=== PATIENT | male | born 1955 | race Caucasian/White ===

== ENCOUNTER 2018-04-01 16:45 | Emergency (ER) | payer MEDICAID ==
[2018-04-01 17:05] VITALS: BP 147/91
--- NOTE | 2018-04-01 17:34 | EDM.PDOC ---
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 He was doing some wheezing and he did use his inhaler several times. He stated the room was very warm and the air did not seem vivian be moving. He did not have severe chest pain and he did not feel like his heart was real rapid. Onset: Today, Sudden Duration: Hour(s): Location: Reports: Chest Associated Symptoms: Reports: Cough, Shortness of Breath Right Shoulder Pain Score (Numeric/FACES): 2 - Related Data Allergies Allergy/AdvReac Type Severity Reaction Status Date / Time No Known Allergies Allergy Verified 04/01/18 16:58 Home Meds: Home Meds Meloxicam [Mobic] 15 mg PO DAILY 01/04/15 [History] buPROPion [buPROPion XL] 150 mg PO BID 01/04/15 [History] Albuterol Sulfate 1 - 2 puff INH Q4H PRN 12/15/17 [History] Budesonide/Formoterol [Symbicort 160-4.5 MCG] 2 puff INH DAILY 12/15/17 [History ] Finasteride [Proscar] 5 mg PO DAILY 12/15/17 [History] Omeprazole Magnesium [Prilosec Otc] 40 mg PO DAILY 12/15/17 [History] Tamsulosin [Flomax] 0.4 mg PO DAILY 12/15/17 [History] Vardenafil HCl [Levitra] 20 mg PO DAILY PRN 12/15/17 [History] Past Medical History HEENT History: Reports: Impaired Vision Cardiovascular History: Reports: Hypertension, Other (See Below) Other Cardiovascular History: physician from clinic thought that patient may have suffered a cardiac event at some point and sent up appt. with binder layer in [place] which patient did not keep Respiratory History: Reports: COPD, Sleep Apnea, SOB Musculoskeletal History: Reports: Back Pain, Chronic Psychiatric History: Reports: Depression - Infectious Disease History Infectious Disease History: Reports: Chicken Pox, Measles, Mumps - Past Surgical History Head Surgeries/Procedures: Reports: None HEENT Surgical History: Reports: Adenoidectomy, Tonsillectomy Other HEENT Surgeries/Procedures: adnoids Respiratory Surgical History: Reports: None Musculoskeletal Surgical History: Reports: Other (See Below) Other Musculoskeletal Surgeries/Procedures:: ankle Dermatological Surgical History: Reports: None Social & Family History - Tobacco Use Smoking Status *Q: Former Smoker Used Tobacco, but Quit: Yes Month/Year Tobacco Last Used: 1991 Second Hand Smoke Exposure: No - Caffeine Use Caffeine Use: Reports: Coffee - Recreational Drug Use Recreational Drug Use: Yes Drug Use in Last 12 Months: Yes Recreational Drug Type: Reports: Marijuana/Hashish Recreational Drug Use Frequency: Daily ED ROS GENERAL - Review of Systems Review Of Systems: See Below Constitutional: Reports: Diaphoresis HEENT: Reports: No Symptoms Respiratory: Reports: Shortness of Breath, Wheezing Endocrine: Reports: No Symptoms GI/Abdominal: Reports: No Symptoms : Reports: No Symptoms Musculoskeletal: Reports: No Symptoms ED EXAM, GENERAL - Physical Exam Exam: See Below Free Text/Narrative:: pt arrived with sob and he felt he was wheezing. He felt ok when he went to work today. 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 Exam Limited By: No Limitations General Appearance: Alert, Moderate Distress Ears: Normal TMs Nose: Normal Inspection Throat/Mouth: Normal Inspection Head: Atraumatic Neck: Normal Inspection Respiratory/Chest: No Respiratory Distress Cardiovascular: Regular Rate, Rhythm, Tachycardia GI/Abdominal: Soft, Non-Tender (Male) Exam: Deferred Rectal (Males) Exam: Deferred Back Exam: Normal Inspection Extremities: Normal Inspection Neurological: Alert, Oriented, Normal Cognition Psychiatric: Normal Affect Course - Vital Signs Last Recorded V/S: Last Vital Signs Temp 37.5 C 04/01/18 17:12 Pulse 97 04/01/18 17:12 Resp 20 04/01/18 17:12 BP 147/91 H 04/01/18 17:12 Pulse Ox 97 04/01/18 17:12 - Orders/Labs/Meds Labs: Laboratory Tests 04/01/18 04/01/18 04/01/18 Range/Units 17:08 17:08 17:08 WBC 6.8 (4.5-11.0) K/uL RBC 5.30 (4.30-5.90) M/uL Hgb 14.9 (12.0-15.0) g/dL Hct 44.6 (40.0-54.0) % MCV 84 (80-98) fL MCH 28 (27-31) pg MCHC 33 (32-36) % Plt Count 280 (150-400) K/uL Neut % (Auto) 71 H (36-66) % Lymph % (Auto) 16 L (24-44) % Denton % (Auto) 10 H (2-6) % Eos % (Auto) 2 (2-4) % Baso % (Auto) 0 (0-1) % Puncture Site ABG pH (7.350-7.450) ABG pCO2 (35.0-42.0) mmHg ABG pO2 (75.0-100.0) mmHg ABG HCO3 (22.0-26.0) mmol/L ABG Total CO2 (23.0-27.0) mmol/L ABG O2 Saturation (95.0-98.0) % ABG O2 Content (15.0-23.0) %vol ABG Base Excess mm/L ABG Hemoglobin (13.5-18.0) g/dL ABG Oxyhemoglobin % ABG Carboxyhemoglobin (0.0-1.6) % ABG Methemoglobin % Aquiles Test O2 Delivery Device Sodium 140 (140-148) mmol/L Potassium 4.0 (3.6-5.2) mmol/L Chloride 105 (100-108) mmol/L Carbon Dioxide 25 (21-32) mmol/L Anion Gap 10.3 (5.0-14.0) mmol/L BUN 22 H (7-18) mg/dL Creatinine 1.3 (0.8-1.3) mg/dL Est Cr Clr Drug Dosing 65.50 mL/min Estimated GFR (MDRD) 56 L (>60) Glucose 94 (74-106) mg/dL Calcium 9.2 (8.5-10.1) mg/dL Total Bilirubin 0.4 (0.2-1.0) mg/dL AST 22 (15-37) U/L ALT 34 (12-78) U/L Alkaline Phosphatase 99 (46-116) U/L Troponin I < 0.017 (0.000-0.056) ng/mL Total Protein 7.4 (6.4-8.2) g/dL Albumin 3.9 (3.4-5.0) g/dL Globulin 3.5 (2.3-3.5) g/dL Albumin/Globulin Ratio 1.1 L (1.2-2.2) 04/01/18 Range/Units 17:31 WBC (4.5-11.0) K/uL RBC (4.30-5.90) M/uL Hgb (12.0-15.0) g/dL Hct (40.0-54.0) % MCV (80-98) fL MCH (27-31) pg MCHC (32-36) % Plt Count (150-400) K/uL Neut % (Auto) (36-66) % Lymph % (Auto) (24-44) % Denton % (Auto) (2-6) % Eos % (Auto) (2-4) % Baso % (Auto) (0-1) % Puncture Site Rt.radial ABG pH 7.432 (7.350-7.450) ABG pCO2 30.7 L (35.0-42.0) mmHg ABG pO2 88.4 (75.0-100.0) mmHg ABG HCO3 20.1 L (22.0-26.0) mmol/L ABG Total CO2 17.4 L (23.0-27.0) mmol/L ABG O2 Saturation 96.6 (95.0-98.0) % ABG O2 Content 19.6 (15.0-23.0) %vol ABG Base Excess -2.6 mm/L ABG Hemoglobin 14.6 (13.5-18.0) g/dL ABG Oxyhemoglobin 95.0 % ABG Carboxyhemoglobin 0.5 (0.0-1.6) % ABG Methemoglobin 1.2 % Aquiles Test Passed O2 Delivery Device Room air Sodium (140-148) mmol/L Potassium (3.6-5.2) mmol/L Chloride (100-108) mmol/L Carbon Dioxide (21-32) mmol/L Anion Gap (5.0-14.0) mmol/L BUN (7-18) mg/dL Creatinine (0.8-1.3) mg/dL Est Cr Clr Drug Dosing mL/min Estimated GFR (MDRD) (>60) Glucose (74-106) mg/dL Calcium (8.5-10.1) mg/dL Total Bilirubin (0.2-1.0) mg/dL AST (15-37) U/L ALT (12-78) U/L Alkaline Phosphatase (46-116) U/L Troponin I (0.000-0.056) ng/mL Total Protein (6.4-8.2) g/dL Albumin (3.4-5.0) g/dL Globulin (2.3-3.5) g/dL Albumin/Globulin Ratio (1.2-2.2) Meds: Medications Discontinued Medications Generic Name Dose Route Start Last Admin Trade Name Freq PRN Reason Stop Dose Admin Albuterol 2.5 mg 04/01/18 17:40 Proventil Neb Soln NEB 04/01/18 17:41 ONETIME ONE - Re-Assessments/Exams Free Text/Narrative Re-Assessment/Exam: 04/01/18 17:52 pt had blood gases which shows a low co2 so I assume he was doing yvon hyperventilatin. His wbc is normal. his chest xray did not reveal a infiltrate. 04/01/18 17:54 trop is normal. his ekg did not show acute changes. Departure - Departure Time of Disposition: 18:10 Disposition: Home, Self-Care 01 Condition: Fair Clinical Impression: Hyperventilation, SOB (shortness of breath) - Discharge Information Instructions: Shortness of Breath, Adult Referrals: PCP,None [Primary Care Provider] - Forms: ED Department Discharge Care Plan Goals: cont to use inhaler, when pt is feeling sob encourage deep breathing. rtc if problems.
[2018-04-01] MEDS ORDERED: Albuterol 0.083% 2.5 MG/3 ML Neb Soln NEB ONE (17:40)
--- NOTE | 2018-04-04 08:36 | CR ---
CHEST: Portable CLINICAL HISTORY:SOB COMPARISON:None FINDINGS: The heart size, pulmonary vascular and hilar structures are normal. No infiltrate effusion or pneumothorax is seen. IMPRESSION: No acute cardiopulmonary process.
== END 2018-04-01 18:12 | disposition home or self-care (01) ==
LOC: JP.ED 16:45
DX: R06.4 Hyperventilation (principal); R06.02 Shortness of breath; I10 Essential (primary) hypertension; J44.9 Chronic obstructive pulmonary disease, unspecified; G47.30 Sleep apnea, unspecified; G89.29 Other chronic pain; M54.9 Dorsalgia, unspecified; F32.9 Major depressive disorder, single episode, unspecified; Z87.891 Personal history of nicotine dependence; Z79.1 Long term (current) use of non-steroidal anti-inflammatories (NSAID); Z79.899 Other long term (current) drug therapy; Z79.51 Long term (current) use of inhaled steroids
CPT/HCPCS: 36415; 36600; 71045; 71045-26; 80053; 82803; 84484; 85025; 93005; 93010; 99285-25

== ENCOUNTER 2018-09-04 05:54 | Emergency (ER) | payer MEDICAID ==
[2018-09-04 06:33] VITALS: BP 170/93
--- NOTE | 2018-09-04 06:59 | EDM.PDOC ---
ED HPI GENERAL MEDICAL PROBLEM - General Chief Complaint: Gastrointestinal Problem Stated Complaint: LOWER STOMACH PAIN Time Seen by Provider: 09/04/18 06:25 Source of Information: Reports: Patient History Limitations: Reports: No Limitations - History of Present Illness INITIAL COMMENTS - FREE TEXT/NARRATIVE: 63 yo with hx of BPH presents with concerns of lower abdominal pain. Pain has been going on for intermittently for years. Worse for the last couple months and especially the last few days. He reports the pain is in his lower abdomen. It in crampy. Intermittent. Nothing seems to provoke or palliate. Associated with loose BMs. Not tarry or bloody. Was on azithromycin last month but no other recent antibiotics. No travel. No fevers. Does have history of BPH. Reports urinary frequency and perhaps some mild dysuria. He reports a "real bad" diet consistent of butter and lots of dairy and meat with few vegetables. Treatments DENSITY CONTROL PUNCHER: Reports: Other (see below) Other Treatments DENSITY CONTROL PUNCHER: none Lower Abdomen Pain Score (Numeric/FACES): 9 - Related Data Allergies Allergy/AdvReac Type Severity Reaction Status Date / Time No Known Allergies Allergy Verified 09/04/18 06:10 Home Meds: Home Meds Meloxicam [Mobic] 15 mg PO DAILY 01/04/15 [History] buPROPion [buPROPion XL] 150 mg PO BID 01/04/15 [History] Albuterol Sulfate 1 - 2 puff INH Q4H PRN 12/15/17 [History] Budesonide/Formoterol [Symbicort 160-4.5 MCG] 2 puff INH DAILY 12/15/17 [History ] Finasteride [Proscar] 5 mg PO DAILY 12/15/17 [History] Omeprazole Magnesium [Prilosec Otc] 40 mg PO DAILY 12/15/17 [History] Tamsulosin [Flomax] 0.4 mg PO DAILY 12/15/17 [History] Sertraline HCl 50 mg PO BEDTIME 09/04/18 [History] Past Medical History HEENT History: Reports: Impaired Vision Cardiovascular History: Reports: Hypertension, Other (See Below) Other Cardiovascular History: physician from clinic thought that patient may have suffered a cardiac event at some point and sent up appt. with [facility] in [place] which patient did not keep Respiratory History: Reports: COPD, Sleep Apnea, SOB Genitourinary History: Reports: Prostate Disorder Musculoskeletal History: Reports: Back Pain, Chronic Psychiatric History: Reports: Depression - Infectious Disease History Infectious Disease History: Reports: Chicken Pox - Past Surgical History Head Surgeries/Procedures: Reports: None HEENT Surgical History: Reports: Adenoidectomy, Tonsillectomy Other HEENT Surgeries/Procedures: adnoids Musculoskeletal Surgical History: Reports: Other (See Below) Other Musculoskeletal Surgeries/Procedures:: ankle Dermatological Surgical History: Reports: None Social & Family History - Tobacco Use Smoking Status *Q: Unknown Ever Smoked - Caffeine Use Caffeine Use: Reports: Coffee - Recreational Drug Use Recreational Drug Use: No ED ROS GENERAL - Review of Systems Review Of Systems: See Below Constitutional: Reports: No Symptoms. Denies: Fever, Chills HEENT: Reports: No Symptoms Respiratory: Reports: No Symptoms. Denies: Cough Cardiovascular: Reports: No Symptoms. Denies: Chest Pain Endocrine: Reports: No Symptoms GI/Abdominal: Reports: Abdominal Pain, Diarrhea, Nausea : Reports: No Symptoms Musculoskeletal: Reports: No Symptoms Skin: Reports: No Symptoms Neurological: Reports: No Symptoms Psychiatric: Reports: No Symptoms Hematologic/Lymphatic: Reports: No Symptoms Immunologic: Reports: No Symptoms ED EXAM, GI/ABD - Physical Exam Exam: See Below Exam Limited By: No Limitations General Appearance: Alert, No Apparent Distress Nose: Normal Inspection Throat/Mouth: Normal Inspection Head: Atraumatic, Normocephalic Neck: Normal Inspection Respiratory/Chest: No Respiratory Distress Cardiovascular: Regular Rate, Rhythm GI/Abdominal Exam: Soft, No Distention, Tender (mild lower abdominal tenderness) Back Exam: Normal Inspection Extremities: Normal Inspection Neurological: Alert, Oriented Psychiatric: Normal Affect, Normal Mood Skin Exam: Warm, Dry Course - Vital Signs Last Recorded V/S: Last Vital Signs Temp 36.1 C 09/04/18 06:03 Pulse 90 09/04/18 06:32 Resp 14 09/04/18 06:32 BP 170/93 H 09/04/18 06:32 Pulse Ox 97 09/04/18 06:32 - Orders/Labs/Meds Labs: Laboratory Tests 09/04/18 Range/Units 07:12 Urine Color Yellow Urine Appearance Clear Urine pH 5.0 (4.5-8.0) Ur Specific Lester 1.005 L (1.008-1.030) Urine Protein Negative (NEGATIVE) mg/dL Urine Glucose (UA) Normal (NEGATIVE) mg/dL Urine Ketones Negative (NEGATIVE) mg/dL Urine Occult Blood Negative (NEGATIVE) Urine Nitrite Negative (NEGAITVE) Urine Bilirubin Negative (NEGATIVE) Urine Urobilinogen Normal (NORMAL) mg/dL Ur Leukocyte Esterase Negative (NEGATIVE) Urine RBC Not seen (0-5) Urine WBC Not seen (0-5) Ur Epithelial Cells Not seen Amorphous Sediment Rare Urine Bacteria Not seen Urine Mucus Not seen - Re-Assessments/Exams Free Text/Narrative Re-Assessment/Exam: 63 yo with hx of BPH presents with concerns of lower abdominal pain. Hx of this for years, particularly over last several month, worsened this last week. On exam here noted to have mild lower abdominal tenderness. Normal vitals. Extensive work-up through PCP including labs and CT scan earlier this week. Hx of BPH. Post void residual measure here measured at 350 cc. At this point given the chronicity of symptoms and work up earlier this week repeat labs/imaging are likely to be of little yield. We will recheck a UA given reported change in urinary symptoms and risk for UTI given BPH. Otherwise have discussed a trial of dietary modification to bland/high fiber diet and minimizing excessive meat/dairy. Follow-up referral with primary MD later this week placed. 09/04/18 07:06 09/04/18 07:14 Departure - Departure Time of Disposition: 07:35 Disposition: Home, Self-Care 01 Condition: Good Clinical Impression: Lower abdominal pain - Discharge Information *PRESCRIPTION DRUG MONITORING PROGRAM REVIEWED*: No *COPY OF PRESCRIPTION DRUG MONITORING REPORT IN PATIENT LINA: No Referrals: Rancho Ogden NP [Primary Care Provider] - Forms: ED Department Discharge Additional Instructions: We did not find a cause for your symptoms on your work-up in the ER today. We recommend changing your diet as discussed: do a trial of increased vegetables like broccoli, toast, mashed potatoes, and other plain food with minimal dairy and meat. Trouble with your diet would not necessarily show up on labs or imaging so the only way to see if this helps is trial the change. Follow up with your primary doctor this week See a doctor soon for significant change in your symptoms including fevers and changing characteristics of the pain.
== END 2018-09-04 07:50 | disposition home or self-care (01) ==
LOC: JP.ED 05:54
DX: R10.30 Lower abdominal pain, unspecified (principal); I10 Essential (primary) hypertension; J44.9 Chronic obstructive pulmonary disease, unspecified; Z79.899 Other long term (current) drug therapy
CPT/HCPCS: 81001; 99284

== ENCOUNTER 2019-01-15 03:19 | Emergency (ER) | payer MEDICAID ==
[2019-01-15] MEDS: Ondansetron 4 MG/2 ML SDV IVPUSH ONE (03:51)
[2019-01-15] MEDS: Lactated Ringers 1,000 ML IV SCH (03:51)
[2019-01-15] MEDS: fentaNYL 100 MCG/2 ML SDV IVPUSH ONE ×2 (03:51→06:40)
[2019-01-15] MEDS: Levofloxacin/Dextrose 5%-Water 750 MG in Premix Bag 1 BAG IV SCH (04:04)
--- NOTE | 2019-01-15 04:07 | EDM.PDOC ---
ED HPI GENERAL MEDICAL PROBLEM - General Chief Complaint: Fever Stated Complaint: RIGHT LEG PAIN Time Seen by Provider: 01/15/19 03:30 Source of Information: Reports: Patient, Old Records, RN Notes Reviewed History Limitations: Reports: No Limitations - History of Present Illness INITIAL COMMENTS - FREE TEXT/NARRATIVE: 63-year-old gentleman presents to the emergency department today complaint of abdominal pain difficulty with urination and fever, he states his symptoms have been going on for the last 2 or 3 days was evaluated in the clinic yesterday lab work included abdominal ultrasound CBC, BMP no notes available lab work is unremarkable. He also complains of nausea no chest pain - Related Data Allergies Allergy/AdvReac Type Severity Reaction Status Date / Time No Known Allergies Allergy Verified 09/04/18 06:10 Home Meds: Home Meds Meloxicam [Mobic] 15 mg PO DAILY 01/04/15 [History] buPROPion [buPROPion XL] 150 mg PO BID 01/04/15 [History] Albuterol Sulfate 1 - 2 puff INH Q4H PRN 12/15/17 [History] Budesonide/Formoterol [Symbicort 160-4.5 MCG] 2 puff INH DAILY 12/15/17 [History ] Finasteride [Proscar] 5 mg PO DAILY 12/15/17 [History] Omeprazole Magnesium [Prilosec Otc] 40 mg PO DAILY 12/15/17 [History] Tamsulosin [Flomax] 0.4 mg PO DAILY 12/15/17 [History] Sertraline HCl 50 mg PO BEDTIME 09/04/18 [History] Past Medical History HEENT History: Reports: Impaired Vision Cardiovascular History: Reports: Hypertension, Other (See Below) Other Cardiovascular History: physician from clinic thought that patient may have suffered a cardiac event at some point and sent up appt. with dental scheduler in [place] which patient did not keep Respiratory History: Reports: COPD, Sleep Apnea, SOB Genitourinary History: Reports: Prostate Disorder Musculoskeletal History: Reports: Back Pain, Chronic Psychiatric History: Reports: Depression - Infectious Disease History Infectious Disease History: Reports: Chicken Pox - Past Surgical History Head Surgeries/Procedures: Reports: None HEENT Surgical History: Reports: Adenoidectomy, Tonsillectomy Other HEENT Surgeries/Procedures: adnoids Musculoskeletal Surgical History: Reports: Other (See Below) Other Musculoskeletal Surgeries/Procedures:: ankle Dermatological Surgical History: Reports: None Social & Family History - Tobacco Use Smoking Status *Q: Unknown Ever Smoked - Caffeine Use Caffeine Use: Reports: Coffee ED ROS GENERAL - Review of Systems Review Of Systems: See Below Constitutional: Reports: Fever, Chills HEENT: Reports: No Symptoms Respiratory: Reports: Shortness of Breath Cardiovascular: Reports: Dyspnea on Exertion GI/Abdominal: Reports: Abdominal Pain, Nausea. Denies: Vomiting : Reports: Frequency, Urinary Retention Musculoskeletal: Reports: No Symptoms Skin: Reports: No Symptoms Neurological: Reports: No Symptoms ED EXAM, SEPSIS - Physical Exam Exam: See Below Text/Narrative:: General: Male, ill-appearing with chills and riders, alert and oriented x3 HEENT : head is atraumatic normocephalic, eyes pupils equal round reactive to light, sclera clear no conjunctivitis appreciated. Ears tympanic membranes clear and rodgers landmarks and light reflex are present bilaterally canals are clear. Nose no septal deviation, nares are clear, no blood present. Mouth mucosa is dry and red no erythema or exudate noted in soft palate, tongue is midline uvula is midline, dentition is intact. Neck: Supple no thyromegaly no tracheal deviation. Nodes: Cervical nodes subclavicular nodes nontender no palpable lymphadenopathy noted. Lungs: Breath sounds are distant but I do not appreciate any adventitious noises CV: Regular rate and rhythm S1 and S2 appreciated no murmurs rubs or gallops noted. Abdomen: Soft, generalized tenderness, no palpable masses or organomegaly appreciated, positive for distention no guarding bowel sounds are present, . Neuro: GCS 15, alert and oriented Skin: Warm and dry, intact Extremities: No lower extremity edema appreciated, pedal pulse is +2. Course - Vital Signs Last Recorded V/S: Last Vital Signs Temp 102.2 F H 01/15/19 05:00 Pulse 100 01/15/19 05:00 Resp 18 01/15/19 05:00 BP 130/60 01/15/19 05:00 Pulse Ox 98 01/15/19 05:00 - Orders/Labs/Meds Orders: Active Orders 24 hr Category Date Time Status Peripheral IV Care [RC] . DIRECTED Care 01/15/19 04:02 Active Vital Signs [RC] Q1H Care 01/15/19 03:37 Active CULTURE BLOOD [BC] Urgent Lab 01/15/19 03:30 Received CULTURE BLOOD [BC] Urgent Lab 01/15/19 03:55 Received CULTURE URINE [RM] Stat Lab 01/15/19 03:45 Received Lactated Ringers [Ringers, Lactated] 1,000 ml Med 01/15/19 03:45 Active IV ASDIRECTED Levofloxacin/Dextrose 5%-Water [Levaquin in D5W 750 MG/ Med 01/15/19 03:45 Active 150 ML] 750 mg Premix Bag 1 bag IV Q24H Sodium Chloride 0.9% [Saline Flush] Med 01/15/19 04:02 Active 10 ml FLUSH ASDIRECTED PRN Blood Culture x2 Reflex Set [OM.PC] Urgent Oth 01/15/19 03:37 Ordered Peripheral IV Insertion Adult [OM.PC] Urgent Oth 01/15/19 04:02 Ordered Medication Orders Lactated Ringer's (Ringers, Lactated) 1,000 mls @ 999 mls/hr IV ASDIRECTED LUCIO Last Admin: 01/15/19 03:51 Dose: 999 mls/hr Levofloxacin/Dextrose 750 mg/ (Premix) 150 mls @ 100 mls/hr IV Q24H LUCIO Last Admin: 01/15/19 04:04 Dose: 100 mls/hr Sodium Chloride (Saline Flush) 10 ml FLUSH ASDIRECTED PRN PRN Reason: Keep Vein Open Last Admin: 01/15/19 04:10 Dose: 10 ml Labs: Laboratory Tests 01/15/19 01/15/19 01/15/19 Range/Units 03:30 03:30 03:30 WBC 4.4 L (4.5-11.0) K/uL RBC 5.41 (4.30-5.90) M/uL Hgb 14.8 (12.0-15.0) g/dL Hct 43.8 (40.0-54.0) % MCV 81 (80-98) fL MCH 27 (27-31) pg MCHC 34 (32-36) % Plt Count 168 (150-400) K/uL Neut % (Auto) 89 H (36-66) % Lymph % (Auto) 6 L (24-44) % [place] % (Auto) 5 (2-6) % Eos % (Auto) 0 L (2-4) % Baso % (Auto) 1 (0-1) % Sodium 135 L (140-148) mmol/L Potassium 3.7 (3.6-5.2) mmol/L Chloride 98 L (100-108) mmol/L Carbon Dioxide 22 (21-32) mmol/L Anion Gap 18.7 H (5.0-14.0) mmol/L BUN 11 (7-18) mg/dL Creatinine 1.0 (0.8-1.3) mg/dL Est Cr Clr Drug Dosing 84.07 mL/min Estimated GFR (MDRD) > 60 (>60) Glucose 105 (74-106) mg/dL Lactic Acid 1.7 (0.4-2.0) mmol/L Calcium 8.7 (8.5-10.1) mg/dL Total Bilirubin 0.5 D (0.2-1.0) mg/dL AST 47 H D (15-37) U/L ALT 44 (12-78) U/L Alkaline Phosphatase 116 (46-116) U/L Lactate Dehydrogenase (85-227) U/L C-Reactive Protein 11.07 H (0.0-0.3) mg/dL Total Protein 6.9 (6.4-8.2) g/dL Albumin 3.2 L (3.4-5.0) g/dL Globulin 3.7 H (2.3-3.5) g/dL Albumin/Globulin Ratio 0.9 L (1.2-2.2) Procalcitonin ng/mL Urine Color Urine Appearance Urine pH (4.5-8.0) Ur Specific [place] (1.008-1.030) Urine Protein (NEGATIVE) mg/dL Urine Glucose (UA) (NEGATIVE) mg/dL Urine Ketones (NEGATIVE) mg/dL Urine Occult Blood (NEGATIVE) Urine Nitrite (NEGAITVE) Urine Bilirubin (NEGATIVE) Urine Urobilinogen (NORMAL) mg/dL Ur Leukocyte Esterase (NEGATIVE) Urine RBC (0-5) Urine WBC (0-5) Ur Epithelial Cells Amorphous Sediment Urine Bacteria Urine Mucus 01/15/19 01/15/19 01/15/19 Range/Units 03:30 03:35 03:45 WBC (4.5-11.0) K/uL RBC (4.30-5.90) M/uL Hgb (12.0-15.0) g/dL Hct (40.0-54.0) % MCV (80-98) fL MCH (27-31) pg MCHC (32-36) % Plt Count (150-400) K/uL Neut % (Auto) (36-66) % Lymph % (Auto) (24-44) % [place] % (Auto) (2-6) % Eos % (Auto) (2-4) % Baso % (Auto) (0-1) % Sodium (140-148) mmol/L Potassium (3.6-5.2) mmol/L Chloride (100-108) mmol/L Carbon Dioxide (21-32) mmol/L Anion Gap (5.0-14.0) mmol/L BUN (7-18) mg/dL Creatinine (0.8-1.3) mg/dL Est Cr Clr Drug Dosing mL/min Estimated GFR (MDRD) (>60) Glucose (74-106) mg/dL Lactic Acid (0.4-2.0) mmol/L Calcium (8.5-10.1) mg/dL Total Bilirubin (0.2-1.0) mg/dL AST (15-37) U/L ALT (12-78) U/L Alkaline Phosphatase (46-116) U/L Lactate Dehydrogenase 312 H (85-227) U/L C-Reactive Protein (0.0-0.3) mg/dL Total Protein (6.4-8.2) g/dL Albumin (3.4-5.0) g/dL Globulin (2.3-3.5) g/dL Albumin/Globulin Ratio (1.2-2.2) Procalcitonin 0.57 ng/mL Urine Color Yellow Urine Appearance Clear Urine pH 6.0 (4.5-8.0) Ur Specific [place] 1.010 (1.008-1.030) Urine Protein Trace (NEGATIVE) mg/dL Urine Glucose (UA) Normal (NEGATIVE) mg/dL Urine Ketones 50 H (NEGATIVE) mg/dL Urine Occult Blood Trace (NEGATIVE) Urine Nitrite Negative (NEGAITVE) Urine Bilirubin Negative (NEGATIVE) Urine Urobilinogen Normal (NORMAL) mg/dL Ur Leukocyte Esterase Negative (NEGATIVE) Urine RBC 0-5 (0-5) Urine WBC 0-5 (0-5) Ur Epithelial Cells Few Amorphous Sediment Not seen Urine Bacteria Few Urine Mucus Not seen Meds: Medications Generic Name Dose Route Start Last Admin Trade Name Freq PRN Reason Stop Dose Admin Lactated Ringer's 1,000 mls @ 999 mls/hr 01/15/19 03:45 01/15/19 03:51 Ringers, Lactated IV 999 mls/hr ASDIRECTED LUCIO Administration Levofloxacin/Dextrose 750 mg/ 150 mls @ 100 mls/hr 01/15/19 03:45 01/15/19 04 :04 Premix IV 100 mls/hr Q24H LUCIO Administration Sodium Chloride 10 ml 01/15/19 04:02 01/15/19 04:10 Saline Flush FLUSH 10 ml ASDIRECTED PRN Administration Keep Vein Open Discontinued Medications Generic Name Dose Route Start Last Admin Trade Name Freq PRN Reason Stop Dose Admin Fentanyl 50 mcg 01/15/19 03:36 01/15/19 03:51 Sublimaze IVPUSH 01/15/19 03:37 50 mcg ONETIME ONE Administration Fentanyl 100 mcg 01/15/19 06:32 01/15/19 06:40 Sublimaze IVPUSH 01/15/19 06:33 100 mcg ONETIME ONE Administration Doxycycline Hyclate 100 mg/ 100 mls @ 100 mls/hr 01/15/19 04:42 01/15/19 05: 50 Sodium Chloride IV 01/15/19 05:41 100 mls/hr ONETIME ONE Administration Ketorolac Tromethamine 30 mg 01/15/19 04:41 01/15/19 05:09 Toradol IVPUSH 01/15/19 04:42 30 mg ONETIME ONE Administration Ondansetron HCl 4 mg 01/15/19 03:36 01/15/19 03:51 Zofran IVPUSH 01/15/19 03:37 4 mg ONETIME ONE Administration Departure - Departure Time of Disposition: 07:13 Disposition: Home, Self-Care 01 Condition: Fair Clinical Impression: Tick bite Qualifiers: Encounter type: initial encounter Qualified Code(s): W57.XXXA - Bitten or stung by nonvenomous insect and other nonvenomous arthropods, initial encounter - Discharge Information Instructions: Tick Bite Information, Adult, [id number] Referrals: PCP,None [Primary Care Provider] - Forms: ED Department Discharge Additional Instructions: Take full course of antibiotics, Please followup with your primary care provider in 3-5 days if not better, please call return to the emergency department with worsening of symptoms. - My Orders Last 24 Hours: My Active Orders 01/15/19 03:30 CULTURE BLOOD [BC] Urgent 01/15/19 03:37 Vital Signs [RC] Q1H Blood Culture x2 Reflex Set [OM.PC] Urgent 01/15/19 03:45 CULTURE URINE [RM] Stat Lactated Ringers [Ringers, Lactated] 1,000 ml IV ASDIRECTED Levofloxacin/Dextrose 5%-Water [Levaquin in D5W 750 MG/150 ML] 750 mg Premix Bag 1 bag IV Q24H 01/15/19 03:55 CULTURE BLOOD [BC] Urgent 01/15/19 04:02 Peripheral IV Care [RC] . DIRECTED Sodium Chloride 0.9% [Saline Flush] 10 ml FLUSH ASDIRECTED PRN Peripheral IV Insertion Adult [OM.PC] Urgent - Assessment/Plan Last 24 Hours: My Active Orders 01/15/19 03:30 CULTURE BLOOD [BC] Urgent 01/15/19 03:37 Vital Signs [RC] Q1H Blood Culture x2 Reflex Set [OM.PC] Urgent 01/15/19 03:45 CULTURE URINE [RM] Stat Lactated Ringers [Ringers, Lactated] 1,000 ml IV ASDIRECTED Levofloxacin/Dextrose 5%-Water [Levaquin in D5W 750 MG/150 ML] 750 mg Premix Bag 1 bag IV Q24H 01/15/19 03:55 CULTURE BLOOD [BC] Urgent 01/15/19 04:02 Peripheral IV Care [RC] . DIRECTED Sodium Chloride 0.9% [Saline Flush] 10 ml FLUSH ASDIRECTED PRN Peripheral IV Insertion Adult [OM.PC] Urgent Plan: Assessment Acuity = acute Site and laterality = probable tickborne illness Etiology = Ixodes scapularis Manifestations = fever, bodyaches Location of injury = Home Lab values = WBC low at 4.4 consistent leukopenia LDH elevated 09/17/11 CRP elevated 11.7 lactic acid normal Plan Initially was started on levofloxacin because of concern for sepsis. However then did admit to the possibility of tickborne illness and advice was switched to doxycycline 200 mg IV. He had good relief with Toradol provided in the ED is bodyaches. Advice doxycycline 100 mg by mouth twice a day 14 days also hydrocodone 5/325 one tab by mouth 3 times a day 10 follow-up primary care in 3- 5 days This note was dictated using [employer] voice recognition software please call with any questions on syntax or grammar.
[2019-01-15] MEDS: Sodium Chloride 0.9% 10 ML Syringe FLUSH PRN (04:10)
--- NOTE | 2019-01-15 04:29 | CRLCR ---
INDICATION: Shortness of breath, fever TECHNIQUE: Chest radiograph 2 views COMPARISON: 05/26/2018 FINDINGS: Mediastinum: The mediastinum is normal in appearance. The heart silhouette is normal in size and morphology. Lung: Both lungs are unremarkable in appearance. No sign of pleural effusion seen. No pneumothorax is identified. IMPRESSION: 1. No acute cardiopulmonary disease is seen. Dictated by: Tarik La MD @ 01/15/2019 04:27:13 (Electronically Signed)
--- NOTE | 2019-01-15 04:29 | CRLCR ---
INDICATION: Abdomen pain TECHNIQUE: Abdominal radiograph 2 view COMPARISON: None FINDINGS: Moderate degradation of image quality noted due to body habitus. Bowel: The bowel gas pattern is normal without evidence of bowel obstruction. Soft tissue: No evidence of pneumoperitoneum present. No suspicious calcifications noted. Bone: Unremarkable for age. IMPRESSION: 1. Unremarkable appearance of the visualized abdomen. Dictated by: Tarik La MD @ 01/15/2019 04:27:39 (Electronically Signed)
[2019-01-15] MEDS: Ketorolac 30 MG/ML SDV IVPUSH ONE (05:09)
[2019-01-15] MEDS: Doxycycline 100 MG in Sodium Chloride 0.9% 100 ML IV ONE (05:50)
[2019-01-15 07:13] VITALS: BP 128/67
== END 2019-01-15 07:22 | disposition home or self-care (01) ==
LOC: JP.ED 03:19
DX: T14.8XXA Other injury of unspecified body region, initial encounter (principal); R50.9 Fever, unspecified; R52 Pain, unspecified; W57.XXXA Bitten or stung by nonvenomous insect and other nonvenomous arthropods, initial encounter
CPT/HCPCS: 36415; 71046; 74018; 80053; 81001; 83605; 83615; 84145; 85025; 86140; 87040; 87086; 96365; 96367; 96375; 96376; 99284-25; J1885; J1956; J2405; J3010; J3490; J7030; J7120

== ENCOUNTER 2019-04-09 15:40 | Emergency (ER) | payer MEDICAID ==
[2019-04-09 16:06] VITALS: BP 151/86; PULSE 74
--- NOTE | 2019-04-09 16:22 | EDM.PDOC ---
ED HPI GENERAL MEDICAL PROBLEM - General Chief Complaint: Laceration Stated Complaint: POKED IN RIGHT EYE WITH STICK Time Seen by Provider: 04/09/19 16:20 Source of Information: Reports: Patient History Limitations: Reports: Uncooperative, Other (anxious due to pain and injury ) - History of Present Illness INITIAL COMMENTS - FREE TEXT/NARRATIVE: 63 year old male present to ER for injury sustain while trimming a tree this afternoon around 3 pm. Patient was wearing glasses and a branch fell and struck his face, right eye and left ear. Patient fell unsure if he hit is head or face on anything else. Patient states it happened too fast. Patient had immediate pain to the right eye and left ear. He has abrasion to left knee without pain with ambulation. Patient presents with cousin whom drove him to ER for evaluation. Patient does not know tetanus status. Patient's mental status is very simple in thought processing. - Related Data Allergies Allergy/AdvReac Type Severity Reaction Status Date / Time No Known Allergies Allergy Verified 04/09/19 16:03 Home Meds: Home Meds Meloxicam [Mobic] 15 mg PO DAILY 01/04/15 [History] buPROPion [buPROPion XL] 150 mg PO BID 01/04/15 [History] Albuterol Sulfate 1 - 2 puff INH Q4H PRN 12/15/17 [History] Finasteride [Proscar] 5 mg PO DAILY 12/15/17 [History] Omeprazole Magnesium [Prilosec Otc] 40 mg PO DAILY 12/15/17 [History] Tamsulosin [Flomax] 0.4 mg PO DAILY 12/15/17 [History] Sertraline HCl 50 mg PO BEDTIME 09/04/18 [History] Past Medical History HEENT History: Reports: Impaired Vision Cardiovascular History: Reports: Hypertension, Other (See Below) Other Cardiovascular History: physician from clinic thought that patient may have suffered a cardiac event at some point and sent up appt. with yard laborer in [place] which patient did not keep Respiratory History: Reports: COPD, Sleep Apnea, SOB Genitourinary History: Reports: Prostate Disorder Musculoskeletal History: Reports: Back Pain, Chronic Psychiatric History: Reports: Depression Endocrine/Metabolic History: Reports: Obesity/BMI 30+ - Infectious Disease History Infectious Disease History: Reports: Chicken Pox - Past Surgical History Head Surgeries/Procedures: Reports: None HEENT Surgical History: Reports: Adenoidectomy, Tonsillectomy Other HEENT Surgeries/Procedures: adnoids Cardiovascular Surgical History: Reports: None Respiratory Surgical History: Reports: None Endocrine Surgical History: Reports: None Musculoskeletal Surgical History: Reports: Other (See Below) Other Musculoskeletal Surgeries/Procedures:: ankle Dermatological Surgical History: Reports: None Social & Family History - Tobacco Use Smoking Status *Q: Former Smoker Used Tobacco, but Quit: Yes Month/Year Tobacco Last Used: 1998 Second Hand Smoke Exposure: No - Caffeine Use Caffeine Use: Reports: Coffee, Soda - Recreational Drug Use Recreational Drug Use: Yes Recreational Drug Type: Reports: Marijuana/Hashish Recreational Drug Use Frequency: Weekly ED ROS GENERAL - Review of Systems Review Of Systems: ROS reveals no pertinent complaints other than HPI. ED EXAM, SKIN/RASH Exam: See Below Exam Limited By: No Limitations General Appearance: Alert, WD/WN, Anxious, Severe Distress (rigth eye injury ) Eye Exam: Right Eye: Conjunctival Injection, Corneal Abrasion (likely ), EOMI ( painful but improve with removal of gravel from lower lid fold), Foreign Body ( gravel conjunctival fold), Normal Inspection (god inspection), Periorbital Changes (likely full thickness lower lid laceration from medial tear duct to lateral eye flap) Ears: Normal External Exam, Normal Canal, Hearing Grossly Normal, Normal TMs, Other (laceration left upper pinna, abrasion inner outer pinna) Nose: Normal Inspection, Normal Mucosa, No Blood Throat/Mouth: Normal Inspection, Normal Lips, Normal Teeth, Normal Gums, Normal Oropharynx, Normal Voice, No Airway Compromise Head: Normocephalic (abrasion with contusion left cheondoism and parietal area ), Facial Tenderness (laceration curved medial forehead) Neck: Normal Inspection, Supple, Non-Tender, Full Range of Motion Respiratory/Chest: No Respiratory Distress Cardiovascular: Normal Peripheral Pulses GI/Abdominal: Normal Bowel Sounds, Soft, Non-Tender, No Organomegaly, No Distention, No Abnormal Bruit, No Mass Extremities: Normal Inspection, Normal Range of Motion (BLE and BUE with full ROM without pain. Abrasion left anterior knee), Non-Tender, No Pedal Edema, Normal Capillary Refill Neurological: Alert, Oriented, CN II-XII Intact, Normal Cognition, Normal Gait, Normal Reflexes, No Motor/Sensory Deficits Psychiatric: Normal Affect, Normal Mood Skin: Warm, Normal Color, No Rash ED SKIN PROCEDURES - Laceration/Wound Repair Middle Anterior Face Appearance: Subcutaneous Distal NVT: Neuro & Vascular Intact Anesthetic Type: Local Local Anesthesia - Lidocaine (Xylocaine): 1% with EPI Local Anesthetic Volume: 2cc Skin Prep: Saline Saline Irrigation (cc's): 150 Exploration/Debridement/Repair: Explored to Base, Minimal Debridement, Foreign Material Removed Closed with: Sutures Lac/Wound length In cm: 1.5 Suture Size: 6-0 # of Sutures: 4 Suture Type: Prolene Drain Placement: No Sterile Dressing Applied: Provider Tetanus Status Addressed: Yes Left Upper Ear Appearance: Subcutaneous Distal NVT: Neuro & Vascular Intact Local Anesthesia - Lidocaine (Xylocaine): 1% with EPI Local Anesthetic Volume: 4cc Skin Prep: Saline Saline Irrigation (cc's): 150 Exploration/Debridement/Repair: Explored to Base, Minimal Debridement, Foreign Material Removed Closed with: Sutures Lac/Wound length In cm: 2.7 Suture Size: 6-0 # of Sutures: 5 Suture Type: Prolene, Simple Sterile Dressing Applied: Provider Tetanus Status Addressed: Yes Complications: No Course - Vital Signs Last Recorded V/S: Last Vital Signs Temp 36.1 C 04/09/19 16:10 Pulse 74 04/09/19 16:10 Resp 16 04/09/19 16:10 BP 151/86 H 04/09/19 16:10 Pulse Ox 94 L 04/09/19 16:10 - Re-Assessments/Exams Free Text/Narrative Re-Assessment/Exam: Evely[facility] [employer] regarding Es Adams, controls project engineer [employer] regarding transfer. Spoke with Dr Adams regarding transfer acceptance by private vehicle and ER provider was available as patient will report to ER for Opthamology evaluation and repair planning which may be done in ER under sedation pending assessment. Tetanus updated lat dose was 2014. Left ear and forehead laceration repair. Erythromycin ointment palced in lower eyelid for comfort due to likely corneal abrasions and No local anesthetic placed in eye or lower eyelid. Moist dressing applied, patch which was secured with bandage. 04/09/19 16:20 Spoke with Patient's Cousin regarding plan to private vehicle transfer to [facility] for Eye Surgeon elvaution and treatment of right lower eye lid laceration likely full thickness. She is comfortable transporting him at this time. 04/09/19 17:03 Departure - Departure Time of Disposition: 17:06 Disposition: DC/Tfer to Acute Hospital 02 Clinical Impression: Laceration of forehead, Laceration of left ear, Tetanus toxoid vaccination administered at current visit, Eyelid laceration, right, Eye injury - Discharge Information Referrals: [place] THERAPEUT[facility] RECREATION ASSISTANT [Primary Care Provider] - Forms: ED Department Discharge Additional Instructions: 1. Go TO [facility] for Eye Surgeon evaluation due to right eye injury and lower eyelid complex laceration.
[2019-04-09] MEDS ORDERED: Erythromycin Base 0.5% Ophth Oint 1 GM Tube EYERT ONE (16:56)
[2019-04-09] MEDS ORDERED: Diphtheria,Pertussis(Acell),Tetanus Vaccine 0.5 ML SDV IM ONE (17:00)
== END 2019-04-09 17:21 ==
LOC: JP.ED 15:40
DX: S01.81XA Laceration without foreign body of other part of head, initial encounter (principal); S01.312A Laceration without foreign body of left ear, initial encounter; S01.111A Laceration without foreign body of right eyelid and periocular area, initial encounter; S80.212A Abrasion, left knee, initial encounter; I10 Essential (primary) hypertension; J44.9 Chronic obstructive pulmonary disease, unspecified; F32.9 Major depressive disorder, single episode, unspecified; Z87.891 Personal history of nicotine dependence; Z79.899 Other long term (current) drug therapy; Z23 Encounter for immunization; W22.8XXA Striking against or struck by other objects, initial encounter
CPT/HCPCS: 12013; 90471; 90715; 99284; A9270

== ENCOUNTER 2020-11-25 23:37 | Emergency (ER) | payer MEDICAID ==
[2020-11-26] MEDS ORDERED: Famotidine 20 MG Tab PO ONE (00:18)
[2020-11-26] MEDS ORDERED: Ondansetron 4 MG Tab.DIS PO ONE (00:19)
--- NOTE | 2020-11-26 00:26 | EDM.PDOC ---
ED HPI GENERAL MEDICAL PROBLEM - General Chief Complaint: General Stated Complaint: CHEST PAIN Time Seen by Provider: 11/26/20 00:20 Source of Information: Reports: Patient History Limitations: Reports: No Limitations - History of Present Illness INITIAL COMMENTS - FREE TEXT/NARRATIVE: pt arrived with a history of some retrosternal pain that lasted for about 20 seconds. He is being prepped for a colonoscopy. When he drank the miralax mixture he got very nauseated and he vomited multiple times. At that ricco he developed the acute pain and he did get scared. He does not have a history of cardiac problems. Pt is now painfree. Onset: Today, Sudden, Other (It was during the time that he was drinking the prep for a colonoscopy. ) Duration: Hour(s): Location: Reports: Chest, Abdomen Associated Symptoms: Reports: Chest Pain, Nausea/Vomiting Right Chest Pain Score (Numeric/FACES): 3 - Related Data Allergies Allergy/AdvReac Type Severity Reaction Status Date / Time No Known Allergies Allergy Verified 11/25/20 23:51 Home Meds: Home Meds buPROPion [buPROPion XL] 150 mg PO DAILY 01/04/15 [History] Albuterol Sulfate 1 - 2 puff INH Q4H PRN 12/15/17 [History] Finasteride [Proscar] 5 mg PO DAILY 12/15/17 [History] Omeprazole Magnesium [Prilosec Otc] 40 mg PO DAILY 12/15/17 [History] Tamsulosin [Flomax] 0.4 mg PO DAILY 12/15/17 [History] Sertraline HCl 50 mg PO BEDTIME 09/04/18 [History] Diclofenac Sodium [Voltaren] 75 mg PO BIDMEALS 12/20/19 [History] atorvaSTATin [Lipitor] 10 mg PO BEDTIME 12/20/19 [History] Past Medical History HEENT History: Reports: Impaired Vision Cardiovascular History: Reports: Hypertension, Other (See Below) Other Cardiovascular History: physician from clinic thought that patient may have suffered a cardiac event at some point and sent up appt. with [employer] in [place] which patient did not keep Respiratory History: Reports: COPD, Sleep Apnea, SOB Genitourinary History: Reports: Prostate Disorder Musculoskeletal History: Reports: Back Pain, Chronic Psychiatric History: Reports: Depression Endocrine/Metabolic History: Reports: Obesity/BMI 30+ - Infectious Disease History Infectious Disease History: Reports: Chicken Pox, Measles, Mumps - Past Surgical History Head Surgeries/Procedures: Reports: None HEENT Surgical History: Reports: Adenoidectomy, Tonsillectomy Other HEENT Surgeries/Procedures: adnoids Cardiovascular Surgical History: Reports: None Respiratory Surgical History: Reports: None Endocrine Surgical History: Reports: None Musculoskeletal Surgical History: Reports: Other (See Below) Other Musculoskeletal Surgeries/Procedures:: ankle Dermatological Surgical History: Reports: None Social & Family History - Tobacco Use Tobacco Use Status *Q: Never Tobacco User - Caffeine Use Caffeine Use: Reports: Coffee, Soda - Recreational Drug Use Recreational Drug Use: Yes Recreational Drug Type: Reports: Marijuana/Hashish ED ROS GENERAL - Review of Systems Review Of Systems: See Below Constitutional: Reports: No Symptoms HEENT: Reports: No Symptoms Respiratory: Reports: No Symptoms Cardiovascular: Reports: No Symptoms Endocrine: Reports: No Symptoms GI/Abdominal: Reports: Nausea, Vomiting : Reports: No Symptoms Musculoskeletal: Reports: No Symptoms Skin: Reports: No Symptoms ED EXAM, GENERAL - Physical Exam Exam: See Below Free Text/Narrative:: pt arrived with a history of rt shoulder nd retrosternal pain. This lasted about 20 seconds. He is now painfree Exam Limited By: No Limitations General Appearance: Alert, Anxious, Mild Distress Ears: Normal TMs Nose: Normal Inspection Throat/Mouth: Normal Inspection Head: Atraumatic Neck: Normal Inspection Respiratory/Chest: No Respiratory Distress Cardiovascular: Regular Rate, Rhythm, Tachycardia GI/Abdominal: Soft, Non-Tender (Male) Exam: Deferred Rectal (Males) Exam: Deferred Back Exam: Normal Inspection Extremities: Normal Inspection Course - Vital Signs Last Recorded V/S: Last Vital Signs Temp 37.8 C 11/25/20 23:50 Pulse 112 H 11/25/20 23:50 Resp 18 11/25/20 23:50 BP 136/79 11/25/20 23:50 Pulse Ox 95 11/25/20 23:50 - Orders/Labs/Meds Meds: Medications Discontinued Medications Generic Name Dose Route Start Last Admin Trade Name Freq PRN Reason Stop Dose Admin Famotidine 40 mg 11/26/20 00:18 11/26/20 00:23 Famotidine 20 Mg Tab PO 11/26/20 00:19 40 mg ONETIME ONE Administration Ondansetron HCl 4 mg 11/26/20 00:19 11/26/20 00:25 Ondansetron 4 Mg Tab.Dis PO 11/26/20 00:20 4 mg ONETIME ONE Administration - Re-Assessments/Exams Free Text/Narrative Re-Assessment/Exam: 11/26/20 00:25 pt was given zoforan and pepcid. Pt appears comfortable at this time. 12/02/20 07:34 ekg was done which did not show acute findings. His rate was controlled and he had a regular rhythm Departure - Departure Time of Disposition: 00:28 Disposition: Home, Self-Care 01 Condition: Fair Clinical Impression: Acid reflux - Discharge Information Referrals: Rancho Ogden NP [Primary Care Provider] - Forms: ED Department Discharge Care Plan Goals: Return to clinic if acute chest pain. Keep colonoscopy appointment Sepsis Event Note (ED) - Evaluation Sepsis Screening Result: No Definite Risk
[2020-11-26 01:31] VITALS: BP 136/79; PULSE 112
== END 2020-11-26 00:40 | disposition home or self-care (01) ==
LOC: JP.ED 23:37
DX: K21.9 Gastro-esophageal reflux disease without esophagitis (principal); I10 Essential (primary) hypertension; J44.9 Chronic obstructive pulmonary disease, unspecified; E66.9 Obesity, unspecified; Z68.30 Body mass index [BMI] 30.0-30.9, adult
CPT/HCPCS: 99284-25; A9270-GY

== ENCOUNTER 2020-11-26 10:51 | Day surgery (SDC) | payer MEDICAID ==
[~2020-11-26 10:51] MED LIST: Dextrose 5%-Lactated Ringers 1,000 ML IV SCH
[2020-11-26] MEDS ORDERED: Propofol 200 MG/20 ML SDV ONE (12:15)
[2020-11-26] MEDS ORDERED: fentaNYL 100 MCG/2 ML SDV ONE (12:15)
[2020-11-26] MEDS ORDERED: Midazolam 1 MG/ML 2 ML SDV ONE (12:15)
[2020-11-26 16:42] VITALS: BP 158/90; PULSE 82
--- NOTE | 2020-12-10 16:36 | OR ---
DATE OF PROCEDURE: 11/26/2020 SURGEON: Daljit Conley MD PREOPERATIVE DIAGNOSIS: Family history of colon carcinoma. POSTOPERATIVE DIAGNOSES: 1. Family history of colon carcinoma. 2. Normal colonoscopic examination. OPERATIVE PROCEDURE: Flexible colonoscopy. ANESTHESIA: IV sedation. INDICATIONS FOR PROCEDURE: This is a 65-year-old male presenting for a screening colonoscopy. He has a family history consisting of his father with colon carcinoma. The plan is to proceed with a colonoscopy with biopsies and/or polypectomy as indicated. Potential risks including bleeding and perforation were discussed and the patient wishes to proceed. DETAILS OF PROCEDURE: The patient was taken to the operating room and placed in a left lateral decubitus position. IV sedation was administered after which the initial digital rectal exam was performed and was unremarkable. Colonoscope was then passed into the rectum with retroflexion revealing uncomplicated hemorrhoidal columns. The scope was eventually passed to the cecum. The prep was fairly good, only a small amount of liquid stool was present. To that level, no pathology was seen. The patient had no diverticular disease, no areas of colitis, no polyps or signs of neoplasia. The scope was then withdrawn, the above findings reconfirmed, and the procedure then concluded. Recommendation would be to repeat the colonoscopy in 5 years given the family history of colon carcinoma. Daljit Conley MD /[id number]
== END 2020-11-26 17:00 | disposition home or self-care (01) ==
LOC: JP.SDS 10:51
PROVIDERS: ATTEND Surgery
DX: Z12.11 Encounter for screening for malignant neoplasm of colon (principal); K64.9 Unspecified hemorrhoids; E78.5 Hyperlipidemia, unspecified; K21.9 Gastro-esophageal reflux disease without esophagitis; J44.9 Chronic obstructive pulmonary disease, unspecified; Z80.0 Family history of malignant neoplasm of digestive organs
CPT/HCPCS: 45378; J2250; J2704; J3010; J7121

== ENCOUNTER 2021-02-25 09:30 | Emergency (ER) | payer MEDICAID ==
[2021-02-25 09:40] VITALS: BP 172/85; PULSE 80
--- NOTE | 2021-02-25 10:08 | EDM.PDOC ---
ED HPI GENERAL MEDICAL PROBLEM - General Chief Complaint: Cardiovascular Problem Stated Complaint: CHEST PAIN SINCE FALL YESTERDAY Time Seen by Provider: 02/25/21 09:55 Source of Information: Reports: Patient History Limitations: Reports: No Limitations - History of Present Illness INITIAL COMMENTS - FREE TEXT/NARRATIVE: 65-year-old male was walking his dog yesterday when he stumbled forward and caught himself awkwardly while falling on the ground. He had almost immediate discomfort in the anterior aspect of his left chest wall, and since that time its been painful, hurts to move and breathe. No shortness of breath, no deformity or bruising, no abdominal pain. It was still hurting today so he thought he should get it checked, he called the clinic and they sent him to the emergency room. Onset: Sudden Duration: Hour(s): (His fall was about 16 hours ago) Location: Reports: Chest - Related Data Allergies Allergy/AdvReac Type Severity Reaction Status Date / Time No Known Allergies Allergy Verified 02/25/21 10:13 Home Meds: Home Meds buPROPion [buPROPion XL] 100 mg PO DAILY 01/04/15 [History] Albuterol Sulfate 1 - 2 puff INH Q4H PRN 12/15/17 [History] Finasteride [Proscar] 5 mg PO DAILY 12/15/17 [History] Omeprazole Magnesium [Prilosec Otc] 40 mg PO DAILY 12/15/17 [History] Tamsulosin [Flomax] 0.4 mg PO DAILY 12/15/17 [History] Sertraline HCl 50 mg PO BEDTIME 09/04/18 [History] Diclofenac Sodium [Voltaren] 75 mg PO BIDMEALS 12/20/19 [History] atorvaSTATin [Lipitor] 10 mg PO BEDTIME 12/20/19 [History] Past Medical History HEENT History: Reports: Impaired Vision Cardiovascular History: Reports: High Cholesterol, Hypertension, Other (See Below) Other Cardiovascular History: physician from clinic thought that patient may have suffered a cardiac event at some point and sent up appt. with [employer] in [place] which patient did not keep Respiratory History: Reports: COPD, SOB Gastrointestinal History: Reports: GERD Genitourinary History: Reports: Prostate Disorder Musculoskeletal History: Reports: Arthritis, Back Pain, Chronic, Fracture Neurological History: Reports: None Psychiatric History: Reports: Addiction, Depression, Mood Swings, Other (See Below) Endocrine/Metabolic History: Reports: Obesity/BMI 30+ - Infectious Disease History Infectious Disease History: Reports: Chicken Pox, Measles, Mumps - Past Surgical History HEENT Surgical History: Reports: Adenoidectomy, Eye Surgery, Tonsillectomy Cardiovascular Surgical History: Reports: None Respiratory Surgical History: Reports: None GI Surgical History: Reports: Colonoscopy Endocrine Surgical History: Reports: None Neurological Surgical History: Reports: Lumbar Spine Musculoskeletal Surgical History: Reports: Other (See Below) Other Musculoskeletal Surgeries/Procedures:: ankle Dermatological Surgical History: Reports: None Social & Family History - Family History Family Medical History: No Pertinent Family History - Caffeine Use Caffeine Use: Reports: Coffee, Soda, Tea ED ROS GENERAL - Review of Systems Review Of Systems: See Below Constitutional: Denies: Fever, Chills HEENT: Reports: No Symptoms Respiratory: Reports: Pleuritic Chest Pain. Denies: Shortness of Breath Cardiovascular: Reports: Chest Pain GI/Abdominal: Denies: Abdominal Pain, Vomiting Musculoskeletal: Reports: Other (Chronic back pain) Skin: Denies: Bruising Neurological: Reports: No Symptoms ED EXAM, GENERAL - Physical Exam Exam: See Below Exam Limited By: No Limitations General Appearance: Alert, No Apparent Distress Head: Atraumatic Neck: Supple, Non-Tender Respiratory/Chest: Lungs Clear Cardiovascular: Regular Rate, Rhythm, Other (He has isolated chest wall discomfort with palpation along the lateral aspect of the left lower anterior costochondral border, no crepitus or deformity) GI/Abdominal: Soft, Non-Tender Extremities: No: Pedal Edema Neurological: Alert, Oriented Psychiatric: Normal Affect, Normal Mood Skin Exam: Warm, Dry Course - Vital Signs Last Recorded V/S: Last Vital Signs Temp 97.5 F 02/25/21 10:11 Pulse 80 02/25/21 10:11 Resp 15 02/25/21 10:11 BP 172/85 H 02/25/21 10:11 Pulse Ox 93 L 02/25/21 10:11 - Re-Assessments/Exams Free Text/Narrative Re-Assessment/Exam: 02/25/21 10:06 Explained to the patient that he has costochondritis or costochondral strain of his chest wall. He is going to take anti-inflammatories and give it a few days, if it worsens he can return for recheck. Departure - Departure Time of Disposition: 10:21 Disposition: Home, Self-Care 01 Clinical Impression: Costochondral joint sprain Qualifiers: Encounter type: initial encounter Qualified Code(s): S23.41XA - Sprain of ribs, initial encounter Instructions: Chest Wall Pain, [id number] Referrals: PCP,None [Primary Care Provider] - Forms: ED Department Discharge Care Plan Goals: Continue your current medications, a regular dose of ibuprofen or naproxen would be helpful and increase activity as tolerated. If you become short of breath, develop fevers, or have worsening pain please return for reevaluation. Sepsis Event Note (ED) - Focused Exam Vital Signs: Vital Signs Temp Pulse Resp BP Pulse Ox 02/25/21 10:11 97.5 F 80 15 172/85 H 93 L 02/25/21 09:39 97.5 F 80 15 172/85 H 93 L
== END 2021-02-25 10:21 | disposition home or self-care (01) ==
LOC: JP.ED 09:30
DX: S23.41XA Sprain of ribs, initial encounter (principal); E78.00 Pure hypercholesterolemia, unspecified; I10 Essential (primary) hypertension; J44.9 Chronic obstructive pulmonary disease, unspecified; K21.9 Gastro-esophageal reflux disease without esophagitis; E66.9 Obesity, unspecified; Z68.30 Body mass index [BMI] 30.0-30.9, adult; W01.0XXA Fall on same level from slipping, tripping and stumbling without subsequent striking against object, initial encounter; Y93.01 Activity, walking, marching and hiking
CPT/HCPCS: 99283

== ENCOUNTER 2021-02-25 23:04 | Emergency (ER) | payer MEDICAID ==
--- NOTE | 2021-02-25 23:33 | EDM.PDOC ---
ED HPI GENERAL MEDICAL PROBLEM - General Chief Complaint: Chest Pain Stated Complaint: CHEST PAIN - L ARM PAIN Time Seen by Provider: 02/25/21 23:17 Source of Information: Reports: Patient, Old Records History Limitations: Reports: No Limitations - History of Present Illness INITIAL COMMENTS - FREE TEXT/NARRATIVE: Vladislav is a 65-year-old male presenting to the ED for left-sided chest pain radiating down his left arm. Patient was seen and evaluated earlier this morning in the ED by Dr. Chavez who felt this was likely noncardiac pain. The patient reportedly fell while walking his dog several days ago and has been having pain for the last 3 days that is significantly worsened this evening with pain now involving the left arm. The patient states that the pain is not there at rest but whenever he moves the left shoulder he gets pain going down the arm from the chest. Patient also is experiencing some pleurodynia with increased pain with deep inspiration or coughing. He denies any nausea or vomiting, diaphoresis, or other injuries related to this fall. He states that the fall was not too bad and he did not experience much of any pain after the fall. He is wondering if this may be an arthritic flare of his shoulder. He denies any fever or chills. chest pain Pain Score (Numeric/FACES): 8 - Related Data Allergies Allergy/AdvReac Type Severity Reaction Status Date / Time No Known Allergies Allergy Verified 02/25/21 23:09 Home Meds: Home Meds buPROPion [buPROPion XL] 100 mg PO DAILY 01/04/15 [History] Albuterol Sulfate 1 - 2 puff INH Q4H PRN 12/15/17 [History] Finasteride [Proscar] 5 mg PO DAILY 12/15/17 [History] Omeprazole Magnesium [Prilosec Otc] 40 mg PO DAILY 12/15/17 [History] Tamsulosin [Flomax] 0.4 mg PO DAILY 12/15/17 [History] Sertraline HCl 50 mg PO BEDTIME 09/04/18 [History] Diclofenac Sodium [Voltaren] 75 mg PO BIDMEALS 12/20/19 [History] atorvaSTATin [Lipitor] 10 mg PO BEDTIME 12/20/19 [History] methocarbamoL [Methocarbamol] 500 mg PO QID PRN #28 tablet 02/26/21 [Rx] Past Medical History HEENT History: Reports: Impaired Vision Cardiovascular History: Reports: High Cholesterol, Hypertension, Other (See Below) Other Cardiovascular History: physician from clinic thought that patient may have suffered a cardiac event at some point and sent up appt. with chief console operator in [place] which patient did not keep Respiratory History: Reports: COPD, SOB Gastrointestinal History: Reports: GERD Genitourinary History: Reports: Prostate Disorder Musculoskeletal History: Reports: Arthritis, Back Pain, Chronic, Fracture Neurological History: Reports: None Psychiatric History: Reports: Addiction, Depression, Mood Swings, Other (See Below) Endocrine/Metabolic History: Reports: Obesity/BMI 30+ - Infectious Disease History Infectious Disease History: Reports: Chicken Pox, Measles, Mumps - Past Surgical History HEENT Surgical History: Reports: Adenoidectomy, Eye Surgery, Tonsillectomy Cardiovascular Surgical History: Reports: None Respiratory Surgical History: Reports: None GI Surgical History: Reports: Colonoscopy Endocrine Surgical History: Reports: None Neurological Surgical History: Reports: Lumbar Spine Musculoskeletal Surgical History: Reports: Other (See Below) Other Musculoskeletal Surgeries/Procedures:: ankle Dermatological Surgical History: Reports: None Social & Family History - Family History Family Medical History: No Pertinent Family History - Caffeine Use Caffeine Use: Reports: Coffee, Soda, Tea ED ROS GENERAL - Review of Systems Review Of Systems: See Below Constitutional: Reports: No Symptoms HEENT: Reports: No Symptoms Respiratory: Reports: Shortness of Breath (Secondary to pleurodynia), Pleuritic Chest Pain Cardiovascular: Reports: Chest Pain (Left-sided involving the left pectoralis major muscle extending into the left shoulder with movement) Endocrine: Reports: No Symptoms GI/Abdominal: Reports: No Symptoms : Reports: No Symptoms Musculoskeletal: Reports: Shoulder Pain (Left shoulder pain radiating down the left arm worsens with movement including flexion and abduction of the shoulder.) Skin: Reports: No Symptoms Neurological: Reports: No Symptoms Psychiatric: Reports: No Symptoms Hematologic/Lymphatic: Reports: No Symptoms Immunologic: Reports: No Symptoms ED EXAM, GENERAL - Physical Exam Exam: See Below Exam Limited By: No Limitations General Appearance: Alert, Anxious, Mild Distress Eye Exam: Bilateral Eye: EOMI, PERRL Throat/Mouth: Normal Inspection, Normal Lips, Normal Oropharynx, Normal Voice, No Airway Compromise Head: Atraumatic, Normocephalic Neck: Normal Inspection, Supple Respiratory/Chest: No Respiratory Distress, Lungs Clear, Normal Breath Sounds, Other (Chest wall tenderness with palpation over the upper portion of the left pectoralis major. Pain worsens with contraction of this muscle with movement of the shoulder) Cardiovascular: Normal Peripheral Pulses, Regular Rate, Rhythm, No Murmur Peripheral Pulses: 2+: Radial (L), Radial (R), Posterior Tibial (L), Posterior Tibial (R) GI/Abdominal: Normal Bowel Sounds, Soft, Non-Tender Back Exam: Normal Inspection Extremities: Normal Range of Motion, Pedal Edema (1+ pedal edema to mid calf) Neurological: Alert, Oriented, Normal Cognition, No Motor/Sensory Deficits Psychiatric: Normal Affect, Normal Mood Skin Exam: Warm, Dry Lymphatic: No Adenopathy #1 Interpretation EKG Date: 02/25/21 Time: 23:12 Rhythm: NSR Rate (Beats/Min): 87 [place]: Normal P-Wave: Enlarged (Left atrial enlargement) QRS: Normal (LVH by voltage criteria.) ST-T: Normal (Early repolarization seen especially in V2 and V3.) QT: Normal Comparison: No Change (No change when compared to previous EKG on 11/26/2020.) Course - Vital Signs Last Recorded V/S: Last Vital Signs Temp 37.7 C 02/25/21 23:46 Pulse 87 02/26/21 00:36 Resp 25 H 02/26/21 00:36 BP 166/89 H 02/26/21 00:36 Pulse Ox 92 L 02/26/21 00:36 - Orders/Labs/Meds Orders: Active Orders 24 hr Category Date Time Status Iopamidol [Isovue-370 (76%)] Med 02/26/21 00:45 Active 79 ml IV . DIRECTED Sodium Chloride 0.9% [Normal Saline] 100 ml Med 02/26/21 00:45 Active IV ASDIRECTED Sodium Chloride 0.9% [Saline Flush] Med 02/25/21 23:19 Active 10 ml FLUSH ASDIRECTED PRN Saline Lock Insert [OM.PC] Routine Oth 02/25/21 23:19 Ordered Medication Orders Sodium Chloride (Normal Saline) 100 mls @ 3.5 mls/sec IV ASDIRECTED LUCIO Last Admin: 02/26/21 01:04 Dose: 4 mls/sec Documented by: JACE Iopamidol (Iopamidol 755 Mg/Ml 100 Ml Bottle) 79 ml IV . DIRECTED [facility] Last Admin: 02/26/21 01:03 Dose: 79 ml Documented by: JACE Sodium Chloride (Sodium Chloride 0.9% 10 Ml Syringe) 10 ml FLUSH ASDIRECTED PRN PRN Reason: Keep Vein Open Last Admin: 02/26/21 00:32 Dose: 10 ml Documented by: SANTIAGO Labs: Laboratory Tests 02/25/21 02/25/21 02/25/21 Range/Units 23:30 23:30 23:30 WBC 9.0 (4.5-11.0) K/uL RBC 4.85 (4.30-5.90) M/uL Hgb 13.5 (12.0-15.0) g/dL Hct 41.3 (40.0-54.0) % MCV 85 (80-98) fL MCH 28 (27-31) pg MCHC 33 (32-36) % Plt Count 220 (150-400) K/uL Neut % (Auto) 66.9 H (36-66) % Lymph % (Auto) 21.2 L (24-44) % Story % (Auto) 8.4 H (2-6) % Eos % (Auto) 3.1 (2-4) % Baso % (Auto) 0.4 (0-1) % D-Dimer, Quantitative 888.93 H (0.0-500.0) ng/mL Sodium 142 (140-148) mmol/L Potassium 3.8 (3.6-5.2) mmol/L Chloride 106 (100-108) mmol/L Carbon Dioxide 27 (21-32) mmol/L Anion Gap 8.6 (5.0-14.0) mmol/L BUN 11 (7-18) mg/dL Creatinine 1.0 (0.8-1.3) mg/dL Est Cr Clr Drug Dosing TNP Estimated GFR (MDRD) > 60 (>60) Glucose 102 (74-106) mg/dL Calcium 8.3 L (8.5-10.1) mg/dL Total Bilirubin 0.2 D (0.2-1.0) mg/dL AST 14 L (15-37) U/L ALT 24 (12-78) U/L Alkaline Phosphatase 105 (46-116) U/L Troponin I < 0.017 (0.000-0.056) ng/mL C-Reactive Protein 0.40 H (0.0-0.3) mg/dL Total Protein 6.4 (6.4-8.2) g/dL Albumin 3.4 (3.4-5.0) g/dL Globulin 3.0 (2.3-3.5) g/dL Albumin/Globulin Ratio 1.1 L (1.2-2.2) Meds: Medications Generic Name Dose Route Start Last Admin Trade Name Freq PRN Reason Stop Dose Admin Sodium Chloride 100 mls @ 3.5 mls/sec 02/26/21 00:45 02/26/21 01:04 Normal Saline IV 4 mls/sec ASDIRECTED LUCIO Administration Iopamidol 79 ml 02/26/21 00:45 02/26/21 01:03 Iopamidol 755 Mg/Ml 100 Ml Bottle IV 79 ml . DIRECTED LUCIO Administration Sodium Chloride 10 ml 02/25/21 23:19 02/26/21 00:32 Sodium Chloride 0.9% 10 Ml Syringe FLUSH 10 ml ASDIRECTED PRN Administration Keep Vein Open Discontinued Medications Generic Name Dose Route Start Last Admin Trade Name Allan PRN Reason Stop Dose Admin Ketorolac Tromethamine 15 mg 02/26/21 01:09 02/26/21 01:26 Ketorolac 30 Mg/Ml Sdv IVPUSH 02/26/21 01:10 15 mg ONETIME ONE Administration Lidocaine 700 mg 02/26/21 01:40 Lidocaine 5% 700 Mg Patch TRDERM 02/26/21 01:41 ONETIME ONE Sodium Chloride 10 ml 02/26/21 00:39 02/26/21 01:04 Sodium Chloride 0.9% 10 Ml Syringe FLUSH 02/26/21 00:40 10 ml ONETIME ONE Administration - Re-Assessments/Exams Free Text/Narrative Re-Assessment/Exam: 02/26/21 00:09 I reviewed the patient's labs showing a normal CBC with a leukocyte count of 9.0 and normal differential. Hemoglobin is 13.5 with a hematocrit of 41.5 and a platelet count of 220,000. The comprehensive metabolic panel is unremarkable except for a calcium of 8.3. Troponin is negative at < 0.017. D-dimer is markedly elevated at 888.9. With this we will get a CT angiogram of the chest to rule out pulmonary embolism. 02/26/21 01:[address] angiogram of the chest imaging as well as the report. There is no evidence for any pulmonary emboli. The patient does have some bilateral basilar atelectasis. There is no other acute findings. With this I believe that the patient did suffer a significant strain of the left anterior chest muscles that are now causing some secondary pain in the left shoulder and arm. We'll put a Lidoderm patch on the chest wall over the area of maximum pain. I'll also give the patient methocarbamol 500 mg p.o. to see if this helps with the spasm. If successful, the patient should start using Salonpas 4% lidocaine patches over the area of pain daily keep it in place for 12 hours and then removing it for 12 hours each day. We will also continue the methocarbamol 4 times daily as needed for muscle pain and spasm. Departure - Departure Time of Disposition: 02:00 Disposition: Home, Self-Care 01 Clinical Impression: Muscle strain of anterior chest wall Instructions: Muscle Strain, Nonspecific Chest Pain, Adult, [id number] Referrals: PCP,None [Primary Care Provider] - Forms: ED Department Discharge Care Plan Goals: Your work-up today has shown that your pain is likely coming from strain of the left chest muscles called the pectoralis major and pectoralis minor. These were likely injured during the fall and are now causing spasm and referred pain down your left arm. Your blood work showed an elevation of a lab called a D-dimer which sometimes occurs with blood clots to the lung, however, the CAT scan of your chest did not demonstrate any evidence for blood clots. The remainder of your labs are unremarkable for anything coming from the heart or lung. We will start to treat your pain with Lidoderm patches applied over the area of maximum pain and methocarbamol which is a muscle relaxant that also helps with muscle pain. You may use the LidoDerm patch or Salonpas lidocaine patch daily keeping it on for 12 hours and removing it for 12 hours. Salonpas patches are available [id number] and are much cheaper than the Lidoderm patches which insurance does not cover. You may take the methocarbamol 1 tablet every 6 hours as needed for the muscle spasm and pain. This will likely take a week or so to resolve. You may continue to take ibuprofen or your diclofenac as before to help reduce inflammation. There was no evidence in your work-up of any fracture of the rib or injury to the shoulder. Sepsis Event Note (ED) - Focused Exam Vital Signs: Vital Signs Temp Pulse Resp BP Pulse Ox 02/26/21 00:36 87 25 H 166/89 H 92 L 02/25/21 23:46 37.7 C 85 20 190/99 H 95 02/25/21 23:38 85 20 190/99 H 95 02/25/21 23:09 37.7 C 92 20 185/91 H 95 - Problem List & Annotations (1) Muscle strain of anterior chest wall SNOMED Code(s): 184012261 Code(s): S29.011A - STRAIN OF MUSCLE AND TENDON OF FRONT WALL OF THORAX, INIT Status: Acute Priority: High Current Visit: Yes - Problem List Review Problem List Initiated/Reviewed/Updated: Yes - My Orders Last 24 Hours: My Active Orders 02/25/21 23:19 Sodium Chloride 0.9% [Saline Flush] 10 ml FLUSH ASDIRECTED PRN Saline Lock Insert [OM.PC] Routine 02/26/21 00:45 Iopamidol [Isovue-370 (76%)] 79 ml IV . DIRECTED Sodium Chloride 0.9% [Normal Saline] 100 ml IV ASDIRECTED - Assessment/Plan Last 24 Hours: My Active Orders 02/25/21 23:19 Sodium Chloride 0.9% [Saline Flush] 10 ml FLUSH ASDIRECTED PRN Saline Lock Insert [OM.PC] Routine 02/26/21 00:45 Iopamidol [Isovue-370 (76%)] 79 ml IV . DIRECTED Sodium Chloride 0.9% [Normal Saline] 100 ml IV ASDIRECTED
[2021-02-26] MEDS: Sodium Chloride 0.9% 10 ML Syringe FLUSH PRN (00:32)
[2021-02-26 00:37] VITALS: BP 166/89; PULSE 87
[2021-02-26] MEDS: Iopamidol 755 Mg/ML 100 ML Bottle IV SCH (01:03)
[2021-02-26] MEDS: Sodium Chloride 0.9% 10 ML Syringe FLUSH ONE (01:04)
[2021-02-26] MEDS: Sodium Chloride 0.9% 100 ML IV SCH (01:04)
[2021-02-26] MEDS: Ketorolac 30 MG/ML SDV IVPUSH ONE (01:26)
--- NOTE | 2021-02-26 01:37 | CRLCT ---
For Patients: As a result of the Century Cures Act, medical imaging exams and procedure reports are released immediately into your electronic medical record. You may view this report before your referring provider. If you have questions, please contact your health care provider. INDICATION: Left-sided chest pain and elevated D-dimer TECHNIQUE: CT chest PE was acquired with 79 cc Isovue 370 intravenous contrast. COMPARISON: None. FINDINGS: Heart and vasculature: Contrast opacification of the pulmonary arterial tree is adequate. No sign of pulmonary embolism. Heart size is normal. Thoracic aorta and pulmonary artery are normal in caliber. Lungs and pleural: No pleural effusion or pneumothorax. Scattered areas of discoid atelectasis lung bases. Lymph nodes/mediastinum: No mediastinal, hilar, or axillary adenopathy. Thyroid gland is normal. Chest wall: No masses. Upper abdomen: Normal. Bones: Unremarkable for age. IMPRESSION: 1. No evidence of pulmonary embolus. 2. Scattered areas of discoid atelectasis lung bases. Please note that all CT scans at this facility use dose modulation, iterative reconstruction, and/or weight-based dosing when appropriate to reduce radiation dose to as low as reasonably achievable. Dictated by David Dsouza MD @ 02/26/2021 1:35:[address] David Dsouza @ Feb 26 2021 1:35AM
[2021-02-26] MEDS: Methocarbamol 500 MG Tab PO ONE (01:54)
[2021-02-26] MEDS: Lidocaine 5% 700 MG Patch TRDERM ONE (01:54)
== END 2021-02-26 02:06 | disposition home or self-care (01) ==
LOC: JP.ED 23:04
DX: S29.011A Strain of muscle and tendon of front wall of thorax, initial encounter (principal); E78.00 Pure hypercholesterolemia, unspecified; I10 Essential (primary) hypertension; J44.9 Chronic obstructive pulmonary disease, unspecified; K21.9 Gastro-esophageal reflux disease without esophagitis; N42.9 Disorder of prostate, unspecified; E66.9 Obesity, unspecified; Z68.31 Body mass index [BMI] 31.0-31.9, adult; Z79.899 Other long term (current) drug therapy; W18.30XA Fall on same level, unspecified, initial encounter
CPT/HCPCS: 36415; 71275; 80053; 84484; 85025; 85379; 86140; 96374; 99285; A9270; J1885; Q9967

== ENCOUNTER 2021-07-06 06:05 | Emergency (ER) | payer MEDICAID ==
--- NOTE | 2021-07-06 06:33 | EDM.PDOC ---
ED HPI GENERAL MEDICAL PROBLEM - General Chief Complaint: General Stated Complaint: FELL ON ICE WEDNESDAY BACK PAIN Time Seen by Provider: 07/06/21 06:11 Source of Information: Reports: Patient History Limitations: Reports: No Limitations - History of Present Illness INITIAL COMMENTS - FREE TEXT/NARRATIVE: Ezra is a 65-year-old male presenting to the ED for low back and pelvic pain. The patient reportedly fell on the ice 2 days ago exacerbating his pain in his low back. He states that since then he is having difficulty walking due to the pain. The patient did have an epidural injection 4 days ago at the pain center and is already on methocarbamol 500 mg 4 times daily as needed and Voltaren 75 mg twice daily. He attempted to get into his primary care provider's office in [place], however, they did not have an appointment space available for him. Have a history for spinal stenosis of the lumbar region. He does get epidural injections to treat this. Sonia walks very gingerly and is stiff. He has a sizable area of ecchymosis involving both buttocks and lower part of his back. - Related Data Allergies Allergy/AdvReac Type Severity Reaction Status Date / Time No Known Allergies Allergy Verified 07/06/21 06:33 Home Meds: Home Meds buPROPion [buPROPion XL] 100 mg PO DAILY 01/04/15 [History] Albuterol Sulfate 1 - 2 puff INH Q4H PRN 12/15/17 [History] Finasteride [Proscar] 5 mg PO DAILY 12/15/17 [History] Omeprazole Magnesium [Prilosec Otc] 40 mg PO DAILY 12/15/17 [History] Tamsulosin [Flomax] 0.4 mg PO DAILY 12/15/17 [History] Sertraline HCl 50 mg PO BEDTIME 09/04/18 [History] Diclofenac Sodium [Voltaren] 75 mg PO BIDMEALS 12/20/19 [History] atorvaSTATin [Lipitor] 10 mg PO BEDTIME 12/20/19 [History] Past Medical History HEENT History: Reports: Impaired Vision Cardiovascular History: Reports: High Cholesterol, Hypertension, Other (See Below) Other Cardiovascular History: physician from clinic thought that patient may have suffered a cardiac event at some point and sent up appt. with bankruptcy legal assistant in [place] which patient did not keep Respiratory History: Reports: COPD, SOB Gastrointestinal History: Reports: GERD Genitourinary History: Reports: Prostate Disorder Musculoskeletal History: Reports: Arthritis, Back Pain, Chronic, Fracture Neurological History: Reports: None Psychiatric History: Reports: Addiction, Depression, Mood Swings, Other (See Below) Endocrine/Metabolic History: Reports: Obesity/BMI 30+ - Infectious Disease History Infectious Disease History: Reports: Chicken Pox, Measles, Mumps - Past Surgical History Head Surgeries/Procedures: Reports: None HEENT Surgical History: Reports: Adenoidectomy, Eye Surgery, Tonsillectomy Other HEENT Surgeries/Procedures: adnoids Cardiovascular Surgical History: Reports: None Respiratory Surgical History: Reports: None GI Surgical History: Reports: Colonoscopy Endocrine Surgical History: Reports: None Neurological Surgical History: Reports: Lumbar Spine Musculoskeletal Surgical History: Reports: Other (See Below) Other Musculoskeletal Surgeries/Procedures:: ankle Dermatological Surgical History: Reports: None Social & Family History - Family History Family Medical History: No Pertinent Family History - Caffeine Use Caffeine Use: Reports: Coffee ED ROS GENERAL - Review of Systems Review Of Systems: See Below Constitutional: Reports: No Symptoms Respiratory: Reports: No Symptoms Cardiovascular: Reports: No Symptoms GI/Abdominal: Reports: No Symptoms Musculoskeletal: Reports: Back Pain (Low back pain and pelvis pain causing difficulty walking) Skin: Reports: Bruising (Bilateral buttock and low back) Neurological: Reports: No Symptoms ED EXAM, GENERAL - Physical Exam Exam: See Below Exam Limited By: No Limitations General Appearance: Alert, Mild Distress Back Exam: Decreased Range of Motion (Secondary to muscle stiffness), Muscle Spasm, Paraspinal Tenderness (Paraspinal tenderness in lumbar spine.), Other (Severe bruising over bilateral buttocks and low back). No: Vertebral Tenderness Extremities: Normal Range of Motion, No Pedal Edema, Normal Capillary Refill Neurological: Alert, Oriented, No Motor/Sensory Deficits Skin Exam: Ecchymosis (Significant ecchymosis covering both buttock) Course - Vital Signs Last Recorded V/S: Last Vital Signs Temp 36.5 C 07/06/21 06:37 Pulse 86 07/06/21 06:37 Resp 20 07/06/21 06:37 BP 168/97 H 07/06/21 06:37 Pulse Ox 91 L 07/06/21 06:37 - Orders/Labs/Meds Orders: Active Orders 24 hr Category Date Time Status Lumbar Spine 2 or 3V [CR] Stat Exams 07/06/21 06:12 Ordered Pelvis 1V or 2V [CR] Stat Exams 07/06/21 06:12 Ordered - Radiology Interpretation Free Text/Narrative:: I reviewed the 1 view x-ray of the pelvis and the three-view x-ray of the lumbar spine. The pelvis showed no acute abnormalities. The lumbar spine showed severe degenerative disc disease as well as degenerative joint disease consistent with chronic lumbar stenosis. There was no evidence for an acute fracture or disc rupture. - Re-Assessments/Exams Free Text/Narrative Re-Assessment/Exam: 07/06/21 07:00 x-rays of the pelvis and lumbar spine did not demonstrate any acute abnormalities. It appears that the injury involves primarily soft tissue with a large hematoma involving both buttock. The main complaint of the patient is pain and stiffness. He is already on a muscle relaxant with methocarbamol and an anti-inflammatory with Voltaren. We will put him on a short course of hydrocodone to manage his pain. At this time he is suitable for discharge home in satisfactory condition. Indications to return to the ED were discussed. Patient should follow-up with his primary care provider as needed. Departure - Departure Time of Disposition: 07:01 Disposition: Home, Self-Care 01 Clinical Impression: Fall due to ice or snow Qualifiers: Encounter type: initial encounter Qualified Code(s): W00.9XXA - Unspecified fall due to ice and snow, initial encounter Contusion of buttock Qualifiers: Encounter type: initial encounter Qualified Code(s): S30.0XXA - Contusion of lower back and pelvis, initial encounter Acute lumbar myofascial strain Qualifiers: Encounter type: initial encounter Qualified Code(s): S39.012A - Strain of muscle, fascia and tendon of lower back, initial encounter - Discharge Information Instructions: Lumbosacral Strain, Contusion, [id number] Referrals: [facility] NP [Primary Care Provider] - Forms: ED Department Discharge Care Plan Goals: Your injuries are consistent with a bruise that is quite sizable to the bilateral buttock and a strain of the low back muscles supporting the spine. There was no evidence on x-rays of a fracture of the pelvis or any new destructive changes in the lumbar spine. Continue with your methocarbamol for the muscle spasm and your Voltaren for the inflammation. We will put you on a short course of hydrocodone for pain. Ice is your friend you may want to apply it to the low back 15 to 20 minutes every couple hours you are awake over the next couple of days to reduce muscle spasm. Have a Babita Matthew. Follow-up with [facility] as needed. Sepsis Event Note (ED) - Focused Exam Vital Signs: Vital Signs Temp Pulse Resp BP Pulse Ox 07/06/21 06:37 36.5 C 86 20 168/97 H 91 L 07/06/21 06:36 36.5 C 86 20 168/97 H 91 L - Problem List & Annotations (1) Acute lumbar myofascial strain SNOMED Code(s): 352917994, [id number], 761555535 Code(s): S39.012A - STRAIN OF MUSCLE, FASCIA AND TENDON OF LOWER BACK, INIT Status: Acute Priority: Medium Current Visit: Yes Qualifiers: Encounter type: initial encounter Qualified Code(s): S39.012A - Strain of m uscle, fascia and tendon of lower back, initial encounter (2) Contusion of buttock SNOMED Code(s): 42313644 Code(s): S30.0XXA - CONTUSION OF LOWER BACK AND PELVIS, INITIAL ENCOUNTER Status: Acute Priority: Medium Current Visit: Yes Qualifiers: Encounter type: initial encounter Qualified Code(s): S30.0XXA - Contusion of lower back and pelvis, initial encounter (3) Fall due to ice or snow SNOMED Code(s): 245372269 Code(s): W00.9XXA - UNSPECIFIED FALL DUE TO ICE AND SNOW, INITIAL ENCOUNTER Status: Acute Priority: Medium Current Visit: Yes Qualifiers: Encounter type: initial encounter Qualified Code(s): W00.9XXA - Unspecified fall due to ice and snow, initial encounter - Problem List Review Problem List Initiated/Reviewed/Updated: Yes - My Orders Last 24 Hours: My Active Orders 07/06/21 06:12 Lumbar Spine 2 or 3V [CR] Stat Pelvis 1V or 2V [CR] Stat - Assessment/Plan Last 24 Hours: My Active Orders 07/06/21 06:12 Lumbar Spine 2 or 3V [CR] Stat Pelvis 1V or 2V [CR] Stat
[2021-07-06 06:39] VITALS: BP 168/97; PULSE 86
--- NOTE | 2021-07-07 11:12 | CR ---
Lumbar Spine 2 or 3V CLINICAL HISTORY: Fall FINDINGS: The vertebral body heights are maintained. There is moderate diffuse degenerative disc disease with accompanying spondylosis. Alignment is maintained. There is some osteoarthritic change in the low lumbar facets IMPRESSION: Moderate diffuse degenerative disc disease. Facet osteoarthropathy. No fracture seen
--- NOTE | 2021-07-07 11:44 | CR ---
Pelvis 1V or 2V CLINICAL HISTORY: Fall FINDINGS: No fracture or dislocation is identified. The degenerative changes in both hips with joint space narrowing being greater on the left IMPRESSION: Degenerative changes both hips greater on the left No fracture
== END 2021-07-06 07:16 | disposition home or self-care (01) ==
LOC: JP.ED 06:05
DX: S39.012A Strain of muscle, fascia and tendon of lower back, initial encounter (principal); S30.0XXA Contusion of lower back and pelvis, initial encounter; I10 Essential (primary) hypertension; J44.9 Chronic obstructive pulmonary disease, unspecified; K21.9 Gastro-esophageal reflux disease without esophagitis; Z79.899 Other long term (current) drug therapy; W00.9XXA Unspecified fall due to ice and snow, initial encounter
CPT/HCPCS: 72100; 72100-26; 72170; 72170-26; 99283

== ENCOUNTER 2021-12-18 22:59 | Emergency (ER) | payer MEDICARE, MEDICAID ==
[2021-12-18 23:20] VITALS: BP 149/81; PULSE 74
[2021-12-18] MEDS ORDERED: Lidocaine 1% 5 ML VIAL INJECT ONE (23:29)
[2021-12-18] MEDS ORDERED: Lidocaine 1% 5 ML VIAL ONE (23:32)
[2021-12-18] MEDS ORDERED: Bacitracin Oint 1 GM U/D Packet TOP ONE (23:41)
== END 2021-12-19 | disposition home or self-care (01) ==
LOC: JP.ED 22:59
DX: S51.852A Open bite of left forearm, initial encounter (principal); E78.00 Pure hypercholesterolemia, unspecified; I10 Essential (primary) hypertension; J44.9 Chronic obstructive pulmonary disease, unspecified; K21.9 Gastro-esophageal reflux disease without esophagitis; E66.9 Obesity, unspecified; Z68.31 Body mass index [BMI] 31.0-31.9, adult; Z79.899 Other long term (current) drug therapy; Z87.891 Personal history of nicotine dependence; W54.0XXA Bitten by dog, initial encounter
CPT/HCPCS: 12002; 99282; 99283-25

== ENCOUNTER 2022-04-16 10:31 | Emergency (ER) | payer MEDICARE, BC ==
[2022-04-16 10:54] VITALS: BP 178/97; PULSE 85
== END 2022-04-16 14:24 | disposition home or self-care (01) ==
LOC: JP.ED 10:31
DX: K59.04 Chronic idiopathic constipation (principal); I10 Essential (primary) hypertension; E78.00 Pure hypercholesterolemia, unspecified; K21.9 Gastro-esophageal reflux disease without esophagitis; E66.9 Obesity, unspecified; J44.9 Chronic obstructive pulmonary disease, unspecified; Z68.20 Body mass index [BMI] 20.0-20.9, adult; Z79.899 Other long term (current) drug therapy
CPT/HCPCS: 74018; 74018-26; 99284

== ENCOUNTER 2022-10-25 17:36 | Emergency (ER) | payer MEDICARE, MEDICAID ==
[2022-10-25 17:54] VITALS: BP 185/98; PULSE 84
[2022-10-25] MEDS ORDERED: Ketorolac 30 MG/ML SDV IM ONE (18:28)
== END 2022-10-25 19:11 | disposition home or self-care (01) ==
LOC: JP.ED 17:36
DX: M54.2 Cervicalgia (principal); M75.42 Impingement syndrome of left shoulder; M75.102 Unspecified rotator cuff tear or rupture of left shoulder, not specified as traumatic; E78.00 Pure hypercholesterolemia, unspecified; I10 Essential (primary) hypertension; J44.9 Chronic obstructive pulmonary disease, unspecified; K21.9 Gastro-esophageal reflux disease without esophagitis; E66.9 Obesity, unspecified; Z68.29 Body mass index [BMI] 29.0-29.9, adult; Z87.891 Personal history of nicotine dependence; Z79.899 Other long term (current) drug therapy
CPT/HCPCS: 72040; 73030; 96372; 99283; J1885

== ENCOUNTER 2022-11-11 07:41 | Day surgery (SDC) | payer MEDICARE, MEDICAID ==
[2022-11-11] MEDS ORDERED: Midazolam 1 MG/ML 2 ML SDV ONE (07:58)
[2022-11-11] MEDS ORDERED: Propofol 200 MG/20 ML SDV ONE ×4 (07:58→11:54)
[2022-11-11] MEDS ORDERED: fentaNYL 100 MCG/2 ML SDV ONE (07:58)
[2022-11-11] MEDS ORDERED: Bupivacaine 0.5% 30 ML SDV ONE ×3 (07:59→10:31)
[2022-11-11 08:03] LABS: HEMATOCRIT 41.1 % (38.4-49.7); HEMOGLOBIN 13.1 g/dL (12.9-16.9); MEAN CORPUSCULAR HEMOGLOBIN 28.2 pg (31.6-35.5); MEAN CORPUSCULAR HGB CONC 31.9 g/dL (31.6-35.5); MEAN CORPUSCULAR VOLUME 88.6 fL (81.4-99.0); RED BLOOD CELL COUNT 4.64 M/uL (4.14-5.76); WHITE BLOOD CELL COUNT,WBC 6.8 K/uL (3.2-11.0)
[2022-11-11 08:23] LABS: ALANINE AMINOTRANSFERASE,ALT 29 U/L (12-78); ALBUMIN 3.1 g/dL (3.4-5.0); ALKALINE PHOSPHATASE 108 U/L (46-116); ASPARTATE AMNIOTRANSFERASE,AST 18 U/L (15-37); BILIRUBIN TOTAL 0.2 mg/dL (0.2-1.0); BLOOD UREA NITROGEN,BUN 18 mg/dL (7-18); CALCIUM 8.5 mg/dL (8.5-10.1); CARBON DIOXIDE,CO2 30 mmol/L (21-32); CHLORIDE,CL 105 mmol/L (100-108); EST CRCL DRUG DOSING (CG) 79.76 mL/min; ESTIMATED GFR 83 mL/min (>60); GLUCOSE RANDOM 104 mg/dL (74-106); PROTEIN TOTAL,TP 6.1 g/dL (6.4-8.2); SODIUM,NA 138 mmol/L (140-148)
[2022-11-11] MEDS ORDERED: Nozin Nasal Sanitizer NASBOTH ONE (08:30)
[2022-11-11] MEDS ORDERED: Lactated Ringers 1,000 ML IV SCH (08:30)
[2022-11-11] MEDS ORDERED: ceFAZolin 1 GM in Premix Bag 1 BAG IV ONE (09:00)
[2022-11-11] MEDS ORDERED: Labetalol 20 MG/4 ML Syringe ONE (11:57)
[2022-11-11] MEDS ORDERED: Acetaminophen/oxyCODONE 325-5 MG Tab PO PRN (13:21)
[2022-11-11 14:27] VITALS: BP 157/68; PULSE 68
== END 2022-11-11 14:10 | disposition home or self-care (01) ==
LOC: JP.SDS 07:41
PROVIDERS: ATTEND Specialist
DX: S46.112A Strain of muscle, fascia and tendon of long head of biceps, left arm, initial encounter (principal); M75.122 Complete rotator cuff tear or rupture of left shoulder, not specified as traumatic; M19.012 Primary osteoarthritis, left shoulder; M75.42 Impingement syndrome of left shoulder; J44.9 Chronic obstructive pulmonary disease, unspecified; K21.9 Gastro-esophageal reflux disease without esophagitis; F41.9 Anxiety disorder, unspecified; N40.0 Benign prostatic hyperplasia without lower urinary tract symptoms; F41.8 Other specified anxiety disorders; E78.00 Pure hypercholesterolemia, unspecified; Z98.890 Other specified postprocedural states; Z90.89 Acquired absence of other organs; Z79.899 Other long term (current) drug therapy; X58.XXXA Exposure to other specified factors, initial encounter
CPT/HCPCS: 29826; 29827; 36415; 64415; 80053; 85027; A9270; C1713; J0690; J2250; J2704; J3010; J3490; J7120

== ENCOUNTER 2023-01-03 05:00 | Emergency (ER) | payer MEDICARE, MEDICAID ==
[2023-01-03 05:55] VITALS: BP 129/72; PULSE 87
== END 2023-01-03 06:18 | disposition home or self-care (01) ==
LOC: JP.ED 05:00
DX: L03.113 Cellulitis of right upper limb (principal); E78.00 Pure hypercholesterolemia, unspecified; I10 Essential (primary) hypertension; J44.9 Chronic obstructive pulmonary disease, unspecified; K21.9 Gastro-esophageal reflux disease without esophagitis; E66.9 Obesity, unspecified; Z68.28 Body mass index [BMI] 28.0-28.9, adult; Z79.899 Other long term (current) drug therapy
CPT/HCPCS: 99283

== ENCOUNTER 2023-02-07 11:51 | Emergency (ER) | payer MEDICARE, MEDICAID ==
[2023-02-07 13:58] VITALS: BP 149/92; PULSE 89
[2023-02-07 14:13] LABS: HEMATOCRIT 39.4 % (38.4-49.7); MEAN CORPUSCULAR HEMOGLOBIN 27.7 pg (31.6-35.5); MEAN CORPUSCULAR VOLUME 83.8 fL (81.4-99.0); RED BLOOD CELL COUNT 4.7 M/uL (4.14-5.76)
[2023-02-07 14:17] LABS: WHITE BLOOD CELL COUNT,WBC 9.4 K/uL (3.2-11.0)
[2023-02-07 14:35] LABS: A/G RATIO 0.9 (1.2-2.2); ALANINE AMINOTRANSFERASE,ALT 27 U/L (12-78); ALBUMIN 3.4 g/dL (3.4-5.0); ALKALINE PHOSPHATASE 122 U/L (46-116); ASPARTATE AMNIOTRANSFERASE,AST 22 U/L (15-37); BILIRUBIN TOTAL 0.5 mg/dL (0.2-1.0); BLOOD UREA NITROGEN,BUN 12 mg/dL (7-18); CALCIUM 8.8 mg/dL (8.5-10.1); CARBON DIOXIDE,CO2 28 mmol/L (21-32); CHLORIDE,CL 102 mmol/L (100-108); CREATINE KINASE,CK 128 U/L (39-308); CREATININE 0.9 mg/dL (0.8-1.3); EST CRCL DRUG DOSING (CG) 88.62 mL/min; ESTIMATED GFR 94 mL/min (>60); GLUCOSE RANDOM 107 mg/dL (74-106); POTASSIUM,K 4.2 mmol/L (3.6-5.2); SODIUM,NA 138 mmol/L (140-148)
[2023-02-07 14:48] LABS: ANION GAP 12.2 mmol/L (5.0-14.0)
== END 2023-02-07 15:00 | disposition home or self-care (01) ==
LOC: JP.ED 11:51
DX: L03.113 Cellulitis of right upper limb (principal); E78.00 Pure hypercholesterolemia, unspecified; I10 Essential (primary) hypertension; J44.9 Chronic obstructive pulmonary disease, unspecified; K21.9 Gastro-esophageal reflux disease without esophagitis; E66.9 Obesity, unspecified; Z68.28 Body mass index [BMI] 28.0-28.9, adult; Z79.899 Other long term (current) drug therapy
CPT/HCPCS: 36415; 73120-26-RT; 73120-RT; 80053; 82550; 83605; 84145; 85027; 85651; 99283; 99284

== ENCOUNTER 2023-03-08 18:37 | Emergency (ER) | payer MEDICARE, MEDICAID ==
[2023-03-08 18:50] VITALS: BP 112/65; PULSE 80
[2023-03-08] MEDS ORDERED: Lidocaine 1% with EPINEPHrine 1:100,000 50 ML MDV INJECT ONE (18:51)
[2023-03-08] MEDS ORDERED: Bacitracin Oint 1 GM U/D Packet TOP ONE (20:50)
== END 2023-03-08 21:06 | disposition home or self-care (01) ==
LOC: JP.ED 18:37
DX: S81.812A Laceration without foreign body, left lower leg, initial encounter (principal); X58.XXXA Exposure to other specified factors, initial encounter
CPT/HCPCS: 12004; 99282

== ENCOUNTER 2023-04-25 01:37 | Emergency (ER) | payer MEDICARE, MEDICAID ==
[2023-04-25 01:58] VITALS: BP 117/71; PULSE 84
[2023-04-25 02:18] LABS: BASOPHILS ABSOLUTE AUTO 0.05 K/uL (0.00-0.10); BASOPHILS PERCENT AUTO 0.7 % (0.1-1.3); EOSINOPHILS ABSOLUTE AUTO 0.35 K/uL (0.00-0.40); EOSINOPHILS PERCENT AUTO 4.9 % (0.0-5.4); HEMATOCRIT 40.5 % (38.4-49.7); HEMOGLOBIN 13.1 g/dL (12.9-16.9); IMMATURE GRAN PERCENT AUTO 0.1 % (0.0-0.7); LYMPHOCYTES ABSOLUTE AUTO 1.88 K/uL (0.8-3.3); LYMPHOCYTES PERCENT AUTO 26.6 % (11.4-47.7); MEAN CORPUSCULAR HEMOGLOBIN 27.1 pg (31.6-35.5); MEAN CORPUSCULAR HGB CONC 32.3 g/dL (31.6-35.5); MEAN CORPUSCULAR VOLUME 83.7 fL (81.4-99.0); MONOCYTES ABSOLUTE AUTO 0.52 K/uL (0.20-0.90); MONOCYTES PERCENT AUTO 7.3 % (3.3-12.6); NEUTROPHILS ABSOLUTE AUTO 4.27 K/uL (1.0-7.6); NEUTROPHILS PERCENT AUTO 60.4 % (40.0-78.1); PLATELET COUNT,PLT 335 K/uL (130-375); RED BLOOD CELL COUNT 4.84 M/uL (4.14-5.76); WHITE BLOOD CELL COUNT,WBC 7.1 K/uL (3.2-11.0)
[2023-04-25 02:27] LABS: IMMATURE GRAN ABSOLUTE AUTO 0.01 K/uL (0.00-0.23)
[2023-04-25] MEDS ORDERED: Cephalexin 250 MG Cap PO ONE (02:33)
== END 2023-04-25 02:43 | disposition home or self-care (01) ==
LOC: JP.ED 01:37
DX: S81.802D Unspecified open wound, left lower leg, subsequent encounter (principal); L08.9 Local infection of the skin and subcutaneous tissue, unspecified; E78.00 Pure hypercholesterolemia, unspecified; I10 Essential (primary) hypertension; J44.9 Chronic obstructive pulmonary disease, unspecified; E66.9 Obesity, unspecified; Z68.28 Body mass index [BMI] 28.0-28.9, adult; Z79.899 Other long term (current) drug therapy; W26.8XXD Contact with other sharp object(s), not elsewhere classified, subsequent encounter
CPT/HCPCS: 36415; 85025; 86140; 99283; A9270

== ENCOUNTER → 2024-11-21 | Day surgery (SDC) | payer MEDICARE, MEDICAID ==
[~2024-11-21] MED LIST changes: -Dextrose 5%-Lactated Ringers 1,000 ML IV SCH; +Ketorolac 30 MG/ML SDV ONE; +Propofol 200 MG/20 ML SDV ONE; +fentaNYL 100 MCG/2 ML SDV ONE
[2024-11-21] MEDS: Lactated Ringers 1,000 ML IV SCH (10:58)
[2024-11-21 13:45] VITALS: PULSE 74
[2024-11-21 13:46] VITALS: BP 159/90
== END ==
LOC: JP.SDS 09:56
PROVIDERS: ATTEND Surgery
DX: K92.0 Hematemesis (principal); I10 Essential (primary) hypertension; J44.9 Chronic obstructive pulmonary disease, unspecified; K21.9 Gastro-esophageal reflux disease without esophagitis
CPT/HCPCS: 00731; 43235; J2704; J3010; J7120; J1885

== ENCOUNTER 2025-03-23 06:51 | Day surgery (SDC) | payer MEDICARE, MEDICAID ==
[2025-03-23] MEDS: Lactated Ringers 1,000 ML IV SCH (07:29)
[2025-03-23] MEDS ORDERED: Propofol 200 MG/20 ML SDV ONE (07:36)
[2025-03-23] MEDS ORDERED: fentaNYL 50 MCG/ML SDV ONE (07:36)
[2025-03-23] MEDS ORDERED: Midazolam 1 MG/ML 2 ML SDV ONE (07:36)
[2025-03-23 09:36] VITALS: PULSE 77
[2025-03-23 09:49] VITALS: BP 165/58
== END 2025-03-23 10:10 | disposition home or self-care (01) ==
LOC: JP.SDS 06:51
PROVIDERS: ATTEND Surgery
DX: K25.7 Chronic gastric ulcer without hemorrhage or perforation (principal); K22.89 Other specified disease of esophagus; I10 Essential (primary) hypertension
CPT/HCPCS: 00731; 43239; J2250; J2704; J3010; J7120; 88305; 88342